=== PATIENT | male | born 1950 | race Caucasian/White ===

== ENCOUNTER 2016-05-18 18:34 | Inpatient (IN) | payer OTHER ==
--- NOTE | 2016-05-18 18:46 | EDPHY ---
H & P Time Seen by Provider: 05/18/16 18:42 HPI/ROS: CHIEF COMPLAINT: Multiple neurological complaints. HISTORY OF PRESENT ILLNESS: This patient is a 66 year old male who presents to the Emergency Department following an episode of acute neurological deficits beginning at 5:30p.m. today. He tells me that he was watching TV when he experienced brief flashes in his vision that he likens to migraine aura. He then experienced paresthesias to both hands that have since subsided. His reports that his speech became slurred with expressive aphasia; for example, he would say "shirt" instead of the name of the character on TV. His difficulty with word finding has persisted to the present. He has a history of migraine headaches with visual aura but tells me that he has not experienced a headache today. He denies any pain or additional complaints. Medical history includes diabetes and hypertension. REVIEW OF SYSTEMS: A complete 10 point review of systems is negative except as mentioned in history of present illness. Past Medical/Surgical History: Diabetes, hypertension, hypothyroid. Social History: and son at bedside. Smoking Status: Current every day smoker Physical Exam: GENERAL: Well-appearing, in no acute distress, alert. HEENT: Eyes normal to inspection, normal pharynx, no signs of dehydration. NECK: No thyromegaly, no lymphadenopathy, supple. RESPIRATORY: Clear to auscultation bilaterally, no rales, rhonchi or wheezing. CVS: Regular rate and rhythm, no rubs, murmurs, or gallops. ABDOMEN: Soft, nontender, nondistended, no organomegaly. BACK: Normal to inspection, no CVA tenderness. SKIN: Normal color, no rash, warm, dry. No pallor. EXTREMITIES: No pedal edema, no calf tenderness, no Homans sign or cords, no joint swelling. NEURO/PSYCH: Alert and oriented x3, normal mood and affect, normal motor sensory exam. No obvious cranial nerve deficit. Normal finger to nose. Normal heel to mishra bilaterally. Short-term memory 2/3. NIH scale: Best language: 1; picture correct, unable to name hammock. Constitutional: Initial Vital Signs Temperature (C) 36.0 C 05/18/16 18:36 Heart Rate 122 H 05/18/16 18:36 Respiratory Rate 16 05/18/16 18:36 Blood Pressure 219/110 H 05/18/16 18:36 O2 Sat (%) 97 05/18/16 18:36 O2 Delivery Mode Nasal Cannula O2 (L/minute) 3 Allergies/Adverse Reactions: No Known Allergies Allergy (Unverified 03/23/10 12:21) Home Medications: Medication Instructions Recorded Ascorbic Acid [Vitamin C 500 mg 500 mg PO DAILY 05/18/16 (*)] Cholecalciferol Vit D3 [Vitamin D3 1,000 units PO DAILY 05/18/16 (*)] Cyanocobalamin [Vitamin B12 (*)] 1,000 mcg PO DAILY 05/18/16 Herbals/Supplements -Info Only 1 ea PO DAILY 05/18/16 Ibuprofen/Diphenhydramine Cit 1 each PO HS PRN 05/18/16 [Advil Pm Caplet] Levothyroxine Sodium 88 mcg PO DAILY@06 05/18/16 [Levothyroxine Sodium] Lisinopril [Zestril 10 mg (*)] 10 mg PO DAILY 05/18/16 Metoprolol Succinate Xr [Toprol Xl 25 mg PO DAILY 05/18/16 25 mg (*)] Zaleplon [Zaleplon] 10 mg PO HS PRN 05/18/16 Zolpidem Tartrate [Zolpidem 10 mg PO HS PRN 05/18/16 Tartrate] glipiZIDE [Glipizide] 5 mg PO DAILY 05/18/16 Medical Decision Making - Diagnostics EKG Interpretation: EKG shows normal sinus tachycardia rate 116; nonspecific intraventricular conduction delay; borderline ST depression V4-V6. Imaging: Study: CT of the head Indication: Acute-onset neurological deficits, stroke alert Results: CT scan of the head was obtained. The results of the study are: non- acute. The study was read by the radiologist, Dr. Sven Urban. I viewed the images myself on the PACS system. Study: CTA of the head Indication: Acute-onset neurological deficits, normal non-contrast CT of the head Results: CT angiogram of the head was obtained. The results of the study are: Moderate stenosis of the right supraclinoid ICA. The study was read by the radiologist, Dr. Sven Urban. I viewed the images myself on the PACS system. Study: CTA of the neck Indication: Acute-onset neurological deficits, normal non-contrast CT of the head Results: CT angiogram of the neck was obtained. The results of the study are: Advanced vascular disease; 99% occlusion of right IC with surrounding calcification plaque. 75% stenosis of left IC. The study was read by Dr. Sven Urban. I viewed the images myself on the PACS system. ED Course/Re-evaluation: 1848: Stroke alert called. 1850: EKG obtained. Teleneurology contacted. iStat obtained: BGL 150. Chemistries are otherwise within normal range. 1854: Patient taken to Imaging for CT of the head without contrast. 1858: The patient returned from CT scan. I reevaluated him at bedside. There is no change to his condition. Awaiting consultation with neurologist at [facility]. IV established. 500ml IV NS administered. 1905: CT results reported to me by Dr. Sven Urban. 1909: Consultation with Dr. Camacho, neurologist, who does not feel that the patient is a candidate for TPA at this time. CTA of head and neck ordered. 324mg PO Aspirin administered. Labs obtained. CBC, chemistries, and Coag are unremarkable. I discussed lab and imaging results with the patient and his family and answered all of their questions. I discussed with them the plan for CTA of the head and neck and subsequent admission to the hospital. They are agreeable to this plan. 1921: Consultation with Dr. Clemente Guzman, hospitalist, who accepts admission. 2011: CTA results reported to me by Dr. Sven Urban. I shared these results with Dr. Clemente Guzman who will discuss them and treatment options with the patient and his family. Differential Diagnosis: My differential includes but is not limited to ischemic CVA, hemorrhagic CVA, dissection, aneurysm, carotid occlusion, vertebral occlusion, electrolyte abnormality, sugar abnormality, ACS, acute OH, bacteremia, sepsis - Data Points Laboratory Results: Laboratory Results 05/18/16 18:50 05/18/16 18:50 05/18/16 05/18/16 18:50 18:44 WBC 7.97 10^3/uL (3.80-9.50) RBC 5.07 10^6/uL (4.40-6.38) Hgb 16.1 g/dL (13.7-17.5) POC Hgb 16.0 gm/dL (14.5-17.3) Hct 44.6 % (40.0-51.0) POC Hct 47 % (42.8-50.6) MCV 88.0 fL (81.5-99.8) MCH 31.8 pg (27.9-34.1) MCHC 36.1 g/dL (32.4-36.7) RDW 12.9 % (11.5-15.2) Plt Count 212 10^3/uL (150-400) MPV 10.2 fL (8.7-11.7) Neut % (Auto) 52.9 % (39.3-74.2) Lymph % (Auto) 34.5 % (15.0-45.0) [place] % (Auto) 9.2 % (4.5-13.0) Eos % (Auto) 2.1 % (0.6-7.6) Baso % (Auto) 1.0 % (0.3-1.7) Nucleat RBC Rel Count 0.0 % (0.0-0.2) Absolute Neuts (auto) 4.22 10^3/uL (1.70-6.50) Absolute Lymphs (auto) 2.75 10^3/uL (1.00-3.00) Absolute Monos (auto) 0.73 10^3/uL (0.30-0.80) Absolute Eos (auto) 0.17 10^3/uL (0.03-0.40) Absolute Basos (auto) 0.08 10^3/uL (0.02-0.10) Absolute Nucleated RBC 0.00 10^3/uL (0-0.01) Immature Gran % 0.3 % (0.0-1.1) Immature Gran # 0.02 10^3/uL (0.00-0.10) PT 12.2 SEC (12.0-15.0) INR 0.91 (0.83-1.16) APTT 24.1 SEC (23.0-38.0) POC Sodium 139 mEq/L (134-144) Sodium 138 mEq/L (134-144) POC Potassium 3.4 mEq/L (3.3-5.0) Potassium 3.7 mEq/L (3.5-5.2) POC Chloride 101 mEq/L (96-108) Chloride 100 mEq/L (97-110) Carbon Dioxide 25 mEq/l (22-31) Anion Gap 13 mEq/L (8-16) POC BUN 10 mg/dL (7-23) BUN 10 mg/dL (7-23) Creatinine 0.9 mg/dL (0.7-1.3) POC Creatinine 0.9 mg/dL (0.8-1.5) Estimated GFR > 60 Glucose 142 H mg/dL (70-100) POC Glucose 150 H mg/dL (70-100) Calcium 9.4 mg/dL (8.5-10.4) Troponin I < 0.012 ng/mL (0-0.034) Ethyl Alcohol < 10 mg/dL (0-10) Medications Given: Discontinued Medications Aspirin (Aspirin) 324 mg PO EDNOW ONE Stop: 05/18/16 19:12 Last Admin: 05/18/16 19:15 Dose: 324 mg Sodium Chloride (Ns) 500 mls @ 0 mls/hr IV ONCE ONE PRN Reason: Wide Open Stop: 05/18/16 19:07 Last Admin: 05/18/16 19:07 Dose: 500 mls Lorazepam (Ativan Injection) 1 mg IVP EDNOW ONE Stop: 05/18/16 19:54 Last Admin: 05/18/16 20:59 Dose: 1 mg Point of Care Test Results: 05/18/16 18:44 POC Sodium 139 POC Potassium 3.4 POC Chloride 101 POC BUN 10 POC Creatinine 0.9 POC Glucose 150 H Departure - Departure Disposition: [facility] In[facility] Acute Clinical Impression: Expressive aphasia Transient cerebral ischemia Qualifiers: Transient cerebral ischemia type: unspecified Qualifier Code: (G45.9) Transient cerebral ischemic attack, unspecified Condition: Fair
--- NOTE | 2016-05-18 18:55 | CPEKG ---
Heart Rate: 116 RR Interval: 517 P-R Interval: 135 QRSD Interval: 116 QT Interval: 336 QTC Interval: 467 P [place]: 27 QRS [place]: -14 T Wave [place]: 44 EKG Severity - ABNORMAL ECG - EKG Impression: SINUS TACHYCARDIA EKG Impression: PROBABLE LEFT ATRIAL ABNORMALITY EKG Impression: NONSPECIFIC INTRAVENTRICULAR CONDUCTION DELAY EKG Impression: BORDERLINE ST DEPRESSION, LATERAL LEADS Electronically Signed By: Shana Mcmanus 18-May-2016 20:39:47
[2016-05-18 19:02] LABS: % IMMATURE GRANULYOCYTES 0.3 % (0.0-1.1); ABSOLUTE IMMATURE GRANULOCYTES 0.02 10^3/uL (0.00-0.10); ADD DIFF? NO; ADD MORPH? NO; ADD SCAN? NO; ATYPICAL LYMPHOCYTE FLAG 0 (0-99); FRAGMENT RBC FLAG 0 (0-99); HEMATOCRIT 44.6 % (40.0-51.0); HEMOGLOBIN 16.1 g/dL (13.7-17.5); LEFT SHIFT FLG 0 (0-99); LIPEMIA HEMOLYSIS FLAG 90 (0-99); MEAN CELL HEMOGLOBIN 31.8 pg (27.9-34.1); MEAN CELL HEMOGLOBIN CONCENTR. 36.1 g/dL (32.4-36.7); MEAN PLATELET VOLUME 10.2 fL (8.7-11.7); PLATELET CLUMPS FLAG 0 (0-99); PLATELET COUNT 212 10^3/uL (150-400); RED BLOOD CELL COUNT 5.07 10^6/uL (4.40-6.38); RED CELL DISTRIBUTION WIDTH 12.9 % (11.5-15.2)
[2016-05-18] MEDS ORDERED: NS 500 ML IV ONE (19:06)
[2016-05-18 19:11] LABS: INR 0.91 (0.83-1.16); PROTIME(PATIENT) 12.2 SEC (12.0-15.0)
[2016-05-18] MEDS ORDERED: ASPIRIN 81 MG CHEWABLE TAB PO ONE (19:11)
--- NOTE | 2016-05-18 19:11 | CT ---
CT Scan of the Head (Without Contrast) Clinical Indications: 66-year-old male stroke alert with word-finding difficulty, a migraine headach e history, and bilateral upper extremity numbness, with onset of symptoms at 5:30 p.m. and with some subsequent resolution. Technique: Axial CT images were acquired from the foramen magnum through the skull vertex, without i ntravenous contrast. Soft tissue, subdural, and bone windows were reviewed on the computer workstati on. Images were reformatted at 5.00 and 1.50 mm increments, and are reformatted in sagittal and brenna nal planes. DFOV is 25.0 cm. Dose reduction techniques were utilized. Comparison Study: None. Findings: There are no mass lesions identified, and there is no evidence of an acute or subacute intr acranial hemorrhage, or an acute infarct. The ventricles and subarachnoid spaces are normal in size for this age group. There is some minimal periventricular diminished attenuation adjacent to the fro ntal horns, likely reflecting some chronic microvascular ischemic gliosis. The bone windows reveal no sign of a fracture. There is some mild atherosclerotic calcification of the parasellar portions of the internal carotid arteries. The craniocervical junction, sella turcica, calcified pineal gland, an d the orbits are unremarkable. The visualized paranasal sinuses and mastoid air cells are free of flu id. If there is continuing clinical concern regarding the patient's symptoms, MR imaging could be co nsidered, if otherwise not contraindicated. Impression: No acute intracranial abnormality identified on this unenhanced CT scan. Results were discussed with Dr. Shana Mcmanus at 7:05 a.m. on May 18, 2016.
[2016-05-18 19:12] LABS: ANION GAP 13 mEq/L (8-16); APTT 24.1 SEC (23.0-38.0); CALCIUM 9.4 mg/dL (8.5-10.4); CARBON DIOXIDE 25 mEq/l (22-31); CHLORIDE 100 mEq/L (97-110); CREATININE 0.9 mg/dL (0.7-1.3); ETHANOL SERUM < 10 mg/dL (0-10); GLOMERULAR FILTRATION RATE > 60; GLUCOSE 142 mg/dL (70-100); POTASSIUM 3.7 mEq/L (3.5-5.2); SODIUM 138 mEq/L (134-144)
[2016-05-18] MEDS ORDERED: IOPAMIDOL (ISOVUE 370) 100 ML BTL IV ONE (19:16)
[2016-05-18 19:23] LABS: TROPONIN I < 0.012 ng/mL (0-0.034)
[2016-05-18] MEDS ORDERED: LORazepam 2 MG/ML INJ IVP ONE (19:53)
[2016-05-18] MEDS ORDERED: NALOXONE HCL 0.4 MG/ML INJ ONE ×2 (20:18)
[2016-05-18] MEDS ORDERED: ZOLPIDEM TARTRATE 5 MG TAB PO PRN (20:37)
[2016-05-18] MEDS ORDERED: ZALEPLON 10 MG PO PRN (20:37)
[2016-05-18] MEDS ORDERED: ONDANSETRON DISINTEGRATING 4 MG TAB PO PRN (20:37)
[2016-05-18] MEDS ORDERED: ACETAMINOPHEN 325 MG TAB PO PRN (20:37)
[2016-05-18] MEDS ORDERED: TEMAZEPAM 15 MG CAP PO PRN (20:37)
[2016-05-18] MEDS ORDERED: ONDANSETRON 4 MG/2 ML VIAL IVP PRN (20:37)
[2016-05-18] MEDS ORDERED: D50W 25 GM/50 ML SYR IVP PRN (20:45)
--- NOTE | 2016-05-18 20:46 | CT ---
CT Angiography of the Head and Neck Clinical History: 66-year-old male ("stroke alert") with aphasia and bilateral upper extremity numbn ess, which began at 5:30 p.m. this evening although has been slightly improving. Evaluate for eccent margaret stenosis, dissection, and/or intraluminal clot. Technique: A timing bolus was used. The patient received 85 mL of Isovue-370, without complication, and a multidetector helical CT scan was obtained from the AP window cephalad to the skull vertex dur ing peak systemic arterial phase, with images reformatted at 0.75 mm increments, and reviewed at a [facility] of window and level settings. Multiplanar reconstructions are reviewed on the workstation. icker slab images are also provided. The DFOV is 26.0 cm. A dose reduction protocol was used. Comparison Study: None. Findings: CT ANGIOGRAPHY OF THE NECK: There is a normal anatomic arrangement of the great vessels off of the a ortic arch. There is some atherosclerotic calcification along the aortic arch, and also involving a portion of the right and left innominate arteries. The visualized subclavian arteries are patent. T he right and left vertebral arteries are patent, and the right vertebral artery is the more dominant of the two vessels. The right and left common carotid arteries are patent; however, at the level of the right carotid bifurcation, there are critical stenoses of the origins of the internal and externa l carotid arteries. The external carotid artery is the more anterior of the two vessels. There is a 99% stenosis associated with the right internal carotid artery, and a 90% stenosis of the origin of the right external carotid artery (please reference axial series #5, images #[id number], and coronal ser ies #7, images #[id number]). There is circumferential calcific plaque at the level of the right carotid b ifurcation. Above this level, the internal and external carotid arteries are patent. On the left si de, the internal jugular vein is intensely contrast-opacified, and there is eccentric mural atheroscl erotic calcification associated with the left carotid bulb and bifurcation. The external carotid art [place] is patent; however, there is a hemodynamically significant ICA stenosis suspected with a 75% sten osis near the calcific plaque. The internal carotid artery is patent. CT source findings reveal reversal of the normal cervical lordosis. There are ventral and dorsal tra ction osteophytes from C3 through C7, with multilevel degenerative disk space narrowing, most pronoun miguelito at C4-C5 and C6-C7. Uncovertebral osteophyte formation and facet hypertrophy result in multileve l advanced neural foraminal stenoses, and dorsal disk osteophyte complexes result in significant cent ral canal stenoses at C3-C4, C4-C5, C5-C6, and C6-C7. These findings could be further evaluated with MR imaging, as clinically directed. The visualized superior mediastinal structures and prevertebral soft tissues are unremarkable. Mediastinal lipomatosis is seen, and the lung apices are essentiall y clear. Impression: 1. There is a 99% stenosis of the right internal carotid artery and a 90% stenosis of the right exte rnal carotid artery, with heavy calcific plaque at the right carotid bulb and bifurcation. 2. There is a 75% mean diameter stenosis of the left internal carotid artery, with eccentric calcifi c plaque. 3. Patent bilateral vertebral arteries, with the right vertebral artery the more dominant of the two vessels. 4. Significant multilevel central canal and neural foraminal stenoses at C3-C4, C4-C5, C5-C6, and C6 -C7. As clinically directed, MR imaging could be considered for additional assessment. These latter findings may be contributing to the patient's bilateral upper extremity weakness. CT ANGIOGRAPHY OF THE BRAIN: The distal cervical vertebral arteries, vertebrobasilar confluence, inf erior and superior cerebellar arteries, basilar artery, and the posterior cerebral arteries appear no rmal. The distal cervical, petrous, cavernous, and supraclinoid internal carotid arteries appear rel atively patent, with the exception of some atherosclerotic calcification which results in a moderate stenosis of the proximal right supraclinoid internal carotid artery (please reference series #5, imag e #[id number]). There is no intraluminal filling defect to suggest an acute clot. The A1 and A2 segments, anterior communicating artery, and the M1, M2, and M3 trifurcation vessels are patent. There is no f ocal aneurysm identified, nor is there a vascular malformation. Impression: 1. Atherosclerotic calcification involving the parasellar aspects of the internal carotid arteries, with a moderate stenosis of the proximal right supraclinoid internal carotid artery. 2. Patent posterior circulation. Results were called to Dr. Shana Mcmanus. A test result has been communicated to a licensed care provider and documented in Christina, 8:08:43 PM , 05/18/2016, [employer] Message ID [id number]. Measurement of carotid stenosis is based on velocity parameters that correlate the residual internal carotid diameter with [place] Symptomatic Carotid Endarterectomy Trial (NASCET) based stenosis levels.
[2016-05-18] MEDS ORDERED: DIPHENHYDRAMINE CIT PO PRN (21:24)
[2016-05-18] MEDS ORDERED: IBUPROFEN PO PRN (21:24)
[2016-05-18] MEDS ORDERED: IBUPROFEN 200 MG TAB PO PRN (21:48)
[2016-05-18] MEDS ORDERED: diphenhydrAMINE 25 MG CAP PO PRN (21:50)
--- NOTE | 2016-05-18 22:19 | GHP ---
[f rep st] HISTORY AND PHYSICAL DATE OF ADMISSION: 05/18/2016 HISTORY OF PRESENT ILLNESS: Mr. Sanchez is a 66-year-old gentleman with a history of hypertension, h yperlipidemia, and diabetes who presents with transient word-finding difficulties. He states that he was in his usual state of health today until he noticed some flashing lights and had the onset of a headache. He tried using some sound waves and humming. This is something he does frequently to abat e the symptoms, and they did not resolve so he sought care. In the emergency department his symptoms were largely improving, and he had basically missed naming a hammock and an NIH Stroke Scale of 1. At the time he had some bilateral hand numbness. He was not hyperventilating. His family said he di d not have facial droop, and they checked specifically. He did not have slurring of speech and more like difficulty completing words. He has never had previous TIA-like symptoms. He has not had palpitations. He is not a smoker. He d oes have diabetes, hypertension, and hyperlipidemia, and he takes a beta robbie and CARLITOS inhibitor, b ut does not take a statin. He has had previous flashing light symptoms with headaches in the past. There was no headache this t sanjeev. He has them infrequently. I suspect he likely has migraines. REVIEW OF SYSTEMS: Complete 10-point Review of Systems was conducted and negative except that as not ed in the HPI. PAST MEDICAL HISTORY: Hypertension, hyperlipidemia, cataracts, diabetes, hypothyroidism. ALLERGIES: No known drug allergies. HOME MEDICATIONS: Glipizide, Zaleplon,Toprol-XL 25, lisinopril 10, levothyroxine. 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 Nonsmoker, minimal alcohol. FAMILY HISTORY: Reviewed and unremarkable. PHYSICAL EXAM: VITAL SIGNS: On presentation temperature 36, blood pressure 219/110. It is now 150/ 80. Pulse 120, but it has come down. Breathing 16 times a minute and 97% on room air. GENERAL: He is anxious, but otherwise in no acute distress. HEENT: Sclerae anicteric. Oropharynx clear. Muco us membranes are moist. NECK: Supple without lymphadenopathy or JVD. LUNGS: Clear to auscultation bilaterally. HEART: S1, intermittently tachycardic. ABDOMEN: Soft, nontender, and nondistended. LOWER EXTREMITIES: Without edema. Calves are nontender. SKIN: Without rash. NEUROLOGIC: Shows fluent speech with no word-finding difficulties. No slurred speech. No dysarthria. Upper extremity and lower extremity strength is 5/5 bilaterally. Sensation is 5/5 bilaterally. Cerebellar testing in the upper extremities intact. LABORATORY STUDIES/IMAGING: EKG shows sinus tachycardia at 116 with normal axis and intervals. Head CT showed unremarkable. Head CTA showed 99% occlusion of the right internal carotid artery with dis margareth to that of 75% occlusion where it enters the skull. There is also a 75% occlusion of the left in ternal carotid artery. That final read is pending. Laboratories: White count 8, hematocrit 45, arely telets are 212,000, INR is 0.9. Sodium 138, potassium 3.7, chloride 100, bicarbonate 25, BUN 10, cre atinine 0.9, glucose 142, troponin less than 0.012. Ethanol level is negative. I have discussed the case with Dr. Shana Mcmanus. ASSESSMENT/PLANS: A 66-year-old gentleman with a transient ischemic attack versus migraine. 1. Transient ischemic attack versus migraine. I suspect this is more likely to be a migraine. His high-grade carotid stenosis is noted. Irrespective, he will be admitted for a further stroke workup including an echocardiogram, lipid panel, and A1c, etc. 2. High-grade carotid stenosis. The patient needs surgical management of this. Dr. Pepito lyuld be consulted in the morning of the [address] [place] [address] to. I have not consulted him at this point in ti me. We will give him a full dose aspirin. I do not see an indication for intravenous heparin at thi s point. 3. Hyperlipidemia. Will check a lipid panel. 4. Diabetes. Will check a hemoglobin A1c. Put him on sliding scale. Hold his glipizide. 5. Hypertension. He is markedly hypertensive here, but I think this is situational secondary to anx iety. We will follow. Would continue his home blood pressure medications and follow. 6. Prophylaxis. Low molecular weight heparin prophylaxis indicated. 7. Disposition: Inpatient status, high risk. /[id number]/MODL
[2016-05-19 04:51] LABS: % IMMATURE GRANULYOCYTES 0.1 % (0.0-1.1); ABSOLUTE IMMATURE GRANULOCYTES 0.01 10^3/uL (0.00-0.10); ADD DIFF? NO; ADD MORPH? NO; ADD SCAN? NO; ATYPICAL LYMPHOCYTE FLAG 0 (0-99); FRAGMENT RBC FLAG 0 (0-99); HEMATOCRIT 39.2 % (40.0-51.0); HEMOGLOBIN 14.1 g/dL (13.7-17.5); LEFT SHIFT FLG 0 (0-99); LIPEMIA HEMOLYSIS FLAG 90 (0-99); MEAN CELL HEMOGLOBIN 31.8 pg (27.9-34.1); MEAN CELL VOLUME 88.5 fL (81.5-99.8); MEAN PLATELET VOLUME 10.5 fL (8.7-11.7); PLATELET CLUMPS FLAG 0 (0-99); PLATELET COUNT 178 10^3/uL (150-400); RED BLOOD CELL COUNT 4.43 10^6/uL (4.40-6.38); RED CELL DISTRIBUTION WIDTH 12.6 % (11.5-15.2)
[2016-05-19 05:01] LABS: INR 0.95 (0.83-1.16); PROTIME(PATIENT) 12.6 SEC (12.0-15.0)
[2016-05-19 05:02] LABS: APTT 24.8 SEC (23.0-38.0)
[2016-05-19 05:04] LABS: CHOLESTEROL 264 mg/dL (140-220); CHOLESTEROL/HDL RATIO 7.54 RATIO (1.00-4.97); HIGH DENSITY LIPOPROTEIN 35 mg/dL (40-65); NON-HIGH DENSITY LIPOPROTEIN 229 mg/dL (90-129); TRIGLYCERIDE 451 mg/dL (40-150)
[2016-05-19] MEDS: LEVOTHYROXINE 88 MCG TAB PO SCH (07:07)
[2016-05-19] MEDS: INSULIN LISPRO 100 UNIT/ML SC SCH ×3 (07:47→18:16)
[2016-05-19] MEDS ORDERED: ASPIRIN 325 MG TAB PO SCH (09:00)
[2016-05-19] MEDS ORDERED: Herbals/Supplements -Info Only PO SCH (09:00)
[2016-05-19] MEDS ORDERED: ENOXAPARIN 40 MG/0.4 ML SYR SC SCH (09:00)
[2016-05-19] MEDS: CHOLECALCIFEROL VIT D3 1,000 UNITS TAB PO SCH (10:37)
[2016-05-19] MEDS: CYANO/VITAMIN B12 1000 MCG TAB PO SCH (10:38)
[2016-05-19] MEDS: ASCORBIC ACID 500 MG TAB PO SCH (10:38)
[2016-05-19] MEDS: LISINOPRIL 10 MG TAB PO SCH (10:39)
[2016-05-19] MEDS: METOPROLOL SUCCINATE XR 25 MG TAB PO SCH (10:40)
--- NOTE | 2016-05-19 12:53 | US ---
Bilateral Duplex Carotid Sonography Clinical Indications: 66-year-old male admitted with dysarthria and noted to have hemodynamically si gnificant stenoses on CT angiography. Evaluate peak systolic velocities. The patient has medically-co ntrolled hypertension and diabetes, and some memory loss. Technique: The cervical portions of the carotid and vertebral arteries were imaged and interrogated by color and pulsed Doppler. Spectral analysis was performed. Cine clips are stored on PACS. Comparison Study: CT angiography of the head and neck, from the evening of May 18, 2016. Findings: Right Carotid Artery: The common carotid artery, bifurcation, and origin of the internal and externa l carotid artery are well imaged. Doppler velocity estimates and color Doppler spectra are evaluated . There is pronounced acoustic shadowing associated with dense atherosclerotic calcification at the l evel of the carotid bulb and the proximal ICA and ECA. The right carotid bulb is near-completely occl uded with a peak systolic velocity of 248 cm/sec. The proximal right internal carotid artery near the stenosis has a peak systolic velocity of 201 cm/sec and a peak diastolic velocity of 37 cm/sec, and there is some spectral broadening on Doppler analysis. The ICA to CCA peak systolic velocity ratio is elevated at 2.7. There is a severe stenosis also associated with the external carotid artery with a peak systolic velocity of 379 cm/sec. Left Carotid Artery: The common carotid artery, bifurcation, and origin of the internal and external carotid artery are well imaged. Doppler velocity estimates and color Doppler spectra are evaluated, and there is eccentric calcific plaque associated with the left carotid bulb. The peak systolic [place] is seen along the more distal visualized portion of the internal carotid artery, measuring 157 c m/sec with a peak diastolic velocity of 32 cm/sec. The ICA to CCA peak systolic velocity ratio is 1.7 5. The peak systolic velocity in the left external carotid artery is 133 cm/sec. Vertebral Arteries: Antegrade flow is shown by pulsed Doppler of each vertebral artery. The peak sys tolic velocity in the right vertebral artery is 64 cm/sec, and on the left has a peak systolic veloci ty of 74 cm/sec. Impression: 1. Severe atherosclerotic calcific plaque with near-complete occlusion of the right carotid bulb, and severe proximal right internal carotid artery stenosis. 2. Atherosclerotic calcific plaque involving the left carotid bulb with a moderate stenosis of the le ft internal carotid artery. 3. Patent, antegrade vertebral arteries. Measurement of carotid stenosis is based on velocity parameters that correlate the residual internal carotid diameter with [place] Symptomatic Carotid Endarterectomy Trial (NASCET) based stenosis levels.
[2016-05-19] MEDS ORDERED: DIAZEPAM 10 MG TAB PO PRN (13:29)
--- NOTE | 2016-05-19 14:46 | HOSPPROG ---
Hospitalist Progress Note Assessment/Plan: 66-year-old male [facility] hospital secondary to word-finding difficulties. This is my 1st encounter with the patient, chart reviewed. Patient's care discussed with Dr. Pepe of Neurology # severe carotid stenosis Obtain MRI of the brain to assure no stroke activity Initiate IV heparin drip at protocol Await Dr. Barker is consultation on Friday05/21/2015 Anticipate need for surgical intervention # word-finding difficulty Resolved independently Potential TIA versus migraine Await Neurology consult # hypertriglyceridemia Per patient has a history of this for about approximately 6 years Refuses statins Reviewed with patient He well consider statins after surgical intervention # history of diabetes mellitus Hemoglobin A1c pending Continue coverage # hypertension Improved Continue patient's home prescribed antihypertensive # disposition Unclear will change to inpatient status Will likely require surgical intervention Initiate heparin drip after MRI has been read Reviewed course of action with patient as well as Subjective: Has returned to baseline. Has no complaints of headache or other discomfort at this time. Has no word-finding difficulties. Objective: Vital Signs Temp Pulse Resp BP Pulse Ox 36.6 C 68 15 119/73 95 05/19/16 07:18 05/19/16 13:45 05/19/16 12:35 05/19/16 13:45 05/19/16 12:35 Laboratory Results 05/19/16 04:21 05/18/16 05/19/16 05/20/16 05:59 05:59 05:59 Intake Total 1200 Output Total 790 850 Balance 410 -850 PT 12.6 SEC (12.0-15.0) 05/19/16 04:21 INR 0.95 (0.83-1.16) 05/19/16 04:21 - Physical Exam Constitutional: no apparent distress, appears nourished, not in pain Eyes: PERRL, anicteric sclera, EOMI Ears, Nose, Mouth, Throat: moist mucous membranes, hearing normal, ears appear normal Cardiovascular: regular rate and rhythym, No JVD, No edema Respiratory: no respiratory distress, no rales or rhonchi, reduced air movement Gastrointestinal: normoactive bowel sounds, No tenderness, No ascites Skin: warm, normal color, No erythema Musculoskeletal: full muscle strength, normal joint ROM, no joint effusions Neurologic: AAOx3 Psychiatric: interacting appropriately, not anxious, not encephalopathic ICD10 Worksheet Patient Problems: Problems Problem Status Diagnosed Expressive aphasia Acute TIA (transient ischemic attack) Acute
--- NOTE | 2016-05-19 15:08 | ECHO ---
[id number] + + [address] : : [place] [address] : : [phone] + + Adult Echocardiographic Report + -------+ :Name: DORYS JARAMILLOEvangelist Date: 05/19/2016 12:49 PM : : Hospital Admission Number: [id number] Locati on: 345: :: 1950 Gender: Male Height: 72 in : :Age: 66 yrs Race: WH Weight: 200 lb : :Reason For Study: TIA/pre op endarterectomy : : BSA: 2.1 meter s2 : + -------+ MMode/2D Measurements & Calculations IVSd: 0.95 cm LVIDd: 4.7 cm FS: 44.1 % Ao root diam: 3.1 cm LVPWd: 1.1 cm LVIDs: 2.6 cm EDV(Teich): 103.9 ml LA dimension: 3.8 cm ESV(Teich): 25.6 ml EF(Teich): 75.3 % Normal Measurement Values: + + :LVIDd (3.5-5.7cm) IVSd (0.6-1.1cm) LVPWd (0.6-1.1cm) Aortic Root (2.0-3.7cm)Left Atrium (1.5-4.0cm): :LV Vol(d) (76-115ml) LV Vol(s) (29-48ml) Ejec Fraction (50-65%)PV Suraj (0.6- 1.2m/s) TV Suraj (0.4-1.0m/s) : :MV E Suraj (0.8-1.0m/s)MV A Suraj (0.3-1.0m/s)LVOT Suraj (0.7-1.2m/s) Asc Ao Suraj ( 0.9-1.8m/s) : + + Doppler Measurements & Calculations MV E max suraj: 84.9 cm/sec Ao mean P.1 mmHg MV A max suraj: 101.7 cm/sec Ao V2 mean: 92.2 cm/sec MV E/A: 0.83 Ao V2 VTI: 27.3 cm Left Ventricle The left ventricle is normal in size. There is normal left ventricular wall thickness. Left ventricular systolic function is normal. Ejection Fraction = 65-70%. There is Doppler evidence for diastolic dysfunction. No regional wall motion abnormalities noted. Right Ventricle The right ventricle is normal in size and function. Atria The left atrial size is normal. Right atrial size is normal. Mitral Valve The mitral valve is normal in structure and function. There is no evidence of mitral valve prolapse. There is no mitral valve stenosis. There is mild mitral regurgitation. Tricuspid Valve Normal tricuspid valve. There is trace tricuspid regurgitation. Aortic Valve The aortic valve is trileaflet. The aortic valve opens well. There is no aortic stenosis. Mild aortic regurgitation. Pulmonic Valve The pulmonic valve is normal in structure and function. Trace pulmonic valvular regurgitation. Great Vessels The aortic root is normal size. Pericardium/Pleural There is a fat pad seen. There is no pericardial effusion. Conclusion A complete two-dimensional transthoracic echocardiogram was performed (2D, M-mode, Doppler and color flow Doppler). Left ventricular systolic function is normal. Ejection Fraction = 65-70%. Normal LV wall motion There is Doppler evidence for Grade I diastolic dysfunction. There is mild mitral regurgitation. There is trace tricuspid regurgitation. Mild aortic regurgitation. Trace pulmonic valvular regurgitation. There is a fat pad seen. No prior echo Final Reading Physician: Dr Rosa Mackay electronically signed on 05/19/2016 03:07 PM Ordering Physician: Clemente Guzman Performed By: Pia Guzman, FRANC
[2016-05-19] MEDS ORDERED: HEPARIN 10,000 UNIT/10 ML MDV IVP PRN (15:35)
[2016-05-19] MEDS ORDERED: HEPARIN/DEXTROSE 500 ML IV SCH (16:00)
--- NOTE | 2016-05-19 16:33 | MR ---
Unenhanced MRI of the Brain Clinical History: 66-year-old male admitted with word-finding difficulties last evening and noted to have hemodynamically significant carotid artery stenoses. Evaluate for any "DWI changes." Technique: Sagittal and axial T1, axial T2, FLAIR, SWI, DWI, and ADC imaging of the brain. Comparison Study: CT scan of the brain from the evening of May 18, 2016. Findings: The ventricles and basilar cisterns are normal in size for age with some mild cerebral elijah ical atrophy. There is periventricular hyperintense FLAIR signal, consistent with chronic microvascul ar ischemic glioma cyst. There is no restricted diffusion on the DWI sequences to suggest an acute or subacute infarction. The brainstem and cerebellum appear normal. There is no blooming artifact to joel ggest occult hemorrhagic products or amyloid angiopathy. There is no acute intra or extra-axial fluid collection. The endocervical junction, sella turcica, pineal gland, and the orbits are normal. The p aranasal sinuses notable only for some mild ethmoid mucosal thickening. The mastoids are patent. Ther e are vertebrobasilar, carotid artery, and dural venous sinus flow-voids. Impression: There is no MR evidence of an acute or subacute infarction.
--- NOTE | 2016-05-19 17:46 | GCON ---
[f rep st] CONSULTATION NEUROLOGY CONSULT REFERRING PHYSICIAN: Clemente Guzman MD CHIEF COMPLAINT: TIA. HISTORY OF PRESENT ILLNESS: The patient is a very pleasant 66-year-old gentleman with a lifelong history of migraines, consisting of scintillating scotomas, followed by mild headache, sometimes bilateral hand numbness. The patient also has a history of hypertension and dyslipidemia, along with diabetes. He does not treat his dyslipidemia. He has taken statins in the past , which he tolerated very well. It reduced his cholesterol, but he stopped because he wanted to try other natural treatments. Yesterday, he began having typical scintillating scotoma, flashing lights, with perhaps a little bit of a headache. He typically can abort his headaches with the technique he has developed of humming but that did not work, and the symptoms progressed with, again, typical paresthesias in both hands. He did develop a new symptom, which he usually does not get, namely, word finding difficulties. Because of these evolving symptoms, he came to the emergency department. Specifically, in terms of the word-finding difficulties, he was having word substitutions, calling characters on television a "shirt." The entire symptomatology lasted 1 hour and spontaneously resolved, and he was back to baseline. Overall, it was identical to his previous migraines with the exception of the word-finding difficulties, suggestive of expressive aphasia symptoms. He had a stroke alert in the emergency department, along with head CT, CTA of the head and neck. The CT showed no acute abnormalities. CTA showed a 99% critical stenosis of the right ICA and 90% stenosis of the right external carotid artery. There was 75% left ICA stenosis. CTA of the brain showed atherosclerotic calcification in the parasellar aspects of the ICAs with moderate stenosis of the proximal right supraclinoid internal carotid artery. He had patent posterior circulation. He had a Doppler ultrasound as well, confirming severe atherosclerotic plaque with near complete occlusion of the right carotid bulb and severe right ICA stenosis. The left ICA stenosis was also noted. Lastly, we performed MRI brain this morning. I reviewed the images myself. He has minimal microvascular changes. Diffusion-weighted imaging shows no acute stroke. REVIEW OF SYSTEMS: A 10-point review of systems was performed and only pertinent to the HPI. PAST MEDICAL HISTORY: Per the Admitting History and Physical. SOCIAL HISTORY: Per the Admitting History and Physical. FAMILY HISTORY: Per the Admitting History and Physical. HOME MEDICATIONS: Glipizide, Zaleplon, Toprol-XL, lisinopril, levothyroxine. PHYSICAL EXAMINATION: VITAL SIGNS: Blood pressure 119/73. He is afebrile. Temperature 36.6. O2 sats are 96%. Heart rate 75, regular. GENERAL: In no acute distress, very pleasant. HIGHER MENTAL FUNCTION: He is awake and alert. He names 5/5, follows commands 5/5, and repeat 5/5. No aphasia. CRANIAL NERVES : Normal 2-7, 11, and 12. No dysarthria. MOTOR: Normal strength, tone, and deep tendon reflexes throughout. No focal weakness. No pronator drift. SENSORY: Normal to light touch in all 4 extremities. Pronation is normal in upper and lower extremities. In summary, normal exam. IMPRESSION AND PLAN: 1. Word finding difficulties, resolved. 2. Paresthesias, resolved. 3. 99% right carotid stenosis 4. 75% left carotid stenosis 5. History of Migraines Overall, the patient's episode may have represented a transient ischemic attack versus a migraine variant. The history is more suggestive of a migraine episode. In any case, the carotid findings are critical and need to be intervened on as soon as possible. The MRI fortunately shows no diffusion-weighted abnormalities. We offered the patient transfer to a different facility, as he understands, we will not have Vascular Surgery here until Friday. The patient understands and accepts risks , benefits, alternatives, and requests to stay here until Friday. As such, we will start an IV heparin drip without bolus for the critical internal carotid stenosis as noted above in light of the possible transient ischemic attack. We will stop his aspirin for potential surgery in the near future. Dr. Barker has been consulted and will see him Friday. The patient should on a statin and, postoperatively, aspirin indefinitely. I have counseled him to be on aspirin 325 mg daily coated with meals. He understood and has agreed to these recommendations. He will ask Dr. Barker about when he can start aspirin after surgery. He will also talk to Dr. Barker about his other carotid artery and arranging possible intervention and the timing of that intervention as well. I have counseled the patient that we change neurology services today and that we will continue to follow him as needed. We have discussed the plan going forward. There are no further recommendations now. Plan discussed with his primary hospitalist as well. Lastly, his vascular risk factors should be addressed and tightly controlled going forward with his PCP. If any further questions about this very pleasant patient, please do not hesitate to contact the neurology service. /[id number]/MODL MTDD
[2016-05-19 18:03] LABS: % IMMATURE GRANULYOCYTES 0.1 % (0.0-1.1); ABSOLUTE IMMATURE GRANULOCYTES 0.01 10^3/uL (0.00-0.10); ADD DIFF? NO; ADD MORPH? NO; ADD SCAN? NO; ATYPICAL LYMPHOCYTE FLAG 0 (0-99); FRAGMENT RBC FLAG 0 (0-99); HEMATOCRIT 39.9 % (40.0-51.0); HEMOGLOBIN 14.5 g/dL (13.7-17.5); LEFT SHIFT FLG 0 (0-99); LIPEMIA HEMOLYSIS FLAG 90 (0-99); MEAN CELL HEMOGLOBIN 32.2 pg (27.9-34.1); MEAN CELL HEMOGLOBIN CONCENTR. 36.3 g/dL (32.4-36.7); MEAN CELL VOLUME 88.5 fL (81.5-99.8); MEAN PLATELET VOLUME 10.6 fL (8.7-11.7); PLATELET CLUMPS FLAG 0 (0-99); PLATELET COUNT 189 10^3/uL (150-400); RED BLOOD CELL COUNT 4.51 10^6/uL (4.40-6.38); RED CELL DISTRIBUTION WIDTH 12.6 % (11.5-15.2)
[2016-05-19 18:13] LABS: INR 1.02 (0.83-1.16); PROTIME(PATIENT) 13.3 SEC (12.0-15.0)
[2016-05-19 18:14] LABS: APTT 28.1 SEC (23.0-38.0)
[2016-05-19] MEDS: DIAZEPAM 5 MG TAB PO PRN (22:35)
[2016-05-20] MEDS: ZOLPIDEM TARTRATE 5 MG TAB PO PRN ×2 (00:17→21:36)
[2016-05-20 04:42] LABS: HEMOGLOBIN A1C 7.5 % (4.0-6.0)
[2016-05-20] MEDS: LEVOTHYROXINE 88 MCG TAB PO SCH (06:29)
[2016-05-20] MEDS: INSULIN LISPRO 100 UNIT/ML SC SCH ×3 (09:42→18:30)
[2016-05-20] MEDS: CYANO/VITAMIN B12 1000 MCG TAB PO SCH (09:43)
[2016-05-20] MEDS: CHOLECALCIFEROL VIT D3 1,000 UNITS TAB PO SCH (09:43)
[2016-05-20] MEDS: ASCORBIC ACID 500 MG TAB PO SCH (09:43)
[2016-05-20] MEDS: METOPROLOL SUCCINATE XR 25 MG TAB PO SCH (09:43)
[2016-05-20] MEDS: LISINOPRIL 10 MG TAB PO SCH (09:43)
--- NOTE | 2016-05-20 11:07 | HOSPPROG ---
Hospitalist Progress Note Assessment/Plan: 66-year-old male [facility] hospital secondary to word-finding difficulties. This is my 1st encounter with the patient, chart reviewed. Reviewed terminal system operator and patient has been in sinus rhythm. # severe carotid stenosis/ 99% on right carotid/ 75% on left carotid MRI of the brain shows nothing acute Await Dr. Barker-consultation on Friday05/21/2015 will make NPO after midnight just in case of surgery started on heparin gtt # word-finding difficulty and paraesthesia Resolved independently Potential TIA versus migraine # hypertriglyceridemia Per patient has a history of this for about approximately 6 years Refuses statins in the past/ now is willing to start after surgery # history of diabetes mellitus Hemoglobin A1c is elevated @ 7.5 (reviewed this with his and him) Continue coverage # hypertension stable Continue patient's home prescribed antihypertensive # disposition Unclear will change to inpatient status Will likely require surgical intervention #Plan NPO status after midnight in case of surgery. Subjective: Raymond is feeling well/ no complaints. Objective: Vital Signs Temp Pulse Resp BP Pulse Ox 36.4 C 58 L 12 135/75 H 94 05/20/16 07:35 05/20/16 07:35 05/20/16 07:35 05/20/16 07:35 05/20/16 07:35 Laboratory Results 05/19/16 17:53 05/19/16 05/20/16 05/21/16 05:59 05:59 05:59 Intake Total 1200 350 Output Total 790 1100 850 Balance 410 -750 -850 PT 13.3 SEC (12.0-15.0) 05/19/16 17:53 INR 1.02 (0.83-1.16) 05/19/16 17:53 - Physical Exam Constitutional: no apparent distress, appears nourished, not in pain Eyes: PERRL Ears, Nose, Mouth, Throat: hearing normal Cardiovascular: regular rate and rhythym, no murmur, rub, or gallop Respiratory: no respiratory distress, clear to auscultation Gastrointestinal: normoactive bowel sounds Skin: warm, normal color Musculoskeletal: full muscle strength, no muscle tenderness Neurologic: AAOx3 Psychiatric: interacting appropriately, not anxious ICD10 Worksheet Patient Problems: Problems Problem Status Diagnosed Expressive aphasia Acute TIA (transient ischemic attack) Acute
[2016-05-20] MEDS: HEPARIN/DEXTROSE 500 ML IV SCH (12:50)
[2016-05-20] MEDS ORDERED: HEPARIN/DEXTROSE 500 ML IV SCH (13:00)
[2016-05-20] MEDS: DIAZEPAM 5 MG TAB PO PRN (21:36)
[2016-05-21] MEDS: LEVOTHYROXINE 88 MCG TAB PO SCH (05:37)
[2016-05-21] MEDS: CHOLECALCIFEROL VIT D3 1,000 UNITS TAB PO SCH (09:05)
[2016-05-21] MEDS: CYANO/VITAMIN B12 1000 MCG TAB PO SCH (09:05)
[2016-05-21] MEDS: ASCORBIC ACID 500 MG TAB PO SCH (09:05)
[2016-05-21] MEDS: LISINOPRIL 10 MG TAB PO SCH (09:05)
[2016-05-21] MEDS: METOPROLOL SUCCINATE XR 25 MG TAB PO SCH (09:05)
[2016-05-21] MEDS: INSULIN LISPRO 100 UNIT/ML SC SCH ×3 (09:10→18:20)
[2016-05-21] MEDS: HEPARIN/DEXTROSE 500 ML IV SCH (09:48)
--- NOTE | 2016-05-21 11:36 | HOSPPROG ---
Hospitalist Progress Note Assessment/Plan: 66-year-old male [facility] hospital secondary to word-finding difficulties. # severe carotid stenosis/ 99% on right carotid/ 75% on left carotid MRI of the brain shows nothing acute spoke with DR Barker/ OR today/ on heparin gtt # word-finding difficulty and paraesthesia Resolved independently Potential TIA versus migraine # hypertriglyceridemia Per patient has a history of this for about approximately 6 years Refuses statins in the past/ now is willing to start after surgery # history of diabetes mellitus Hemoglobin A1c is elevated @ 7.5 (reviewed this with his and him) Continue coverage # hypertension stable Continue patient's home prescribed antihypertensive # disposition pending #Plan explained to the patient and his he will be in ICU for recovery. Appreciate Dr Barker/ will get repeat labs in a.m. Subjective: Raymond has no c/o pain. Very appreciative of care in the hospital by all the staff. Objective: Vital Signs Temp Pulse Resp BP Pulse Ox 36.7 C 67 16 156/81 H 93 05/21/16 11:20 05/21/16 11:20 05/21/16 11:20 05/21/16 11:20 05/21/16 11:20 Laboratory Results 05/21/16 05:38 05/20/16 05/21/16 05/22/16 05:59 05:59 05:59 Intake Total 350 630 300 Output Total 1100 850 Balance -750 -220 300 PT 13.3 SEC (12.0-15.0) 05/19/16 17:53 INR 1.02 (0.83-1.16) 05/19/16 17:53 - Physical Exam Constitutional: no apparent distress, appears nourished, not in pain Eyes: PERRL Ears, Nose, Mouth, Throat: hearing normal Cardiovascular: regular rate and rhythym Respiratory: no respiratory distress Gastrointestinal: normoactive bowel sounds Skin: warm, normal color Musculoskeletal: no muscle tenderness Neurologic: AAOx3 Psychiatric: interacting appropriately, not anxious, not encephalopathic, thought process linear ICD10 Worksheet Patient Problems: Problems Problem Status Diagnosed Expressive aphasia Acute TIA (transient ischemic attack) Acute
[2016-05-21] MEDS ORDERED: NS 1,000 ML IV SCH (11:45)
[2016-05-21] MEDS ORDERED: THROMBIN (RECOMBINANT) 20,000 UNIT SPRAY TP ONE (13:00)
[2016-05-21] MEDS ORDERED: SKIN ADHESIVE (DERMABOND) 1 EACH TP ONE (13:00)
[2016-05-21] MEDS ORDERED: ceFAZolin 2 GM/DEXTROSE 100 ML IV ONE (13:00)
[2016-05-21] MEDS ORDERED: PROTAMINE SULFATE 50 MG/5 ML VIAL IVP ONE (13:00)
[2016-05-21] MEDS ORDERED: BUPIVACAINE 0.5% 30 ML SDV ONE (13:01)
[2016-05-21] MEDS ORDERED: MIDAZOLAM 2 MG/2 ML VIAL ONE (13:13)
[2016-05-21] MEDS ORDERED: fentaNYL 100 MCG/2 ML INJ ONE ×2 (13:28→15:54)
[2016-05-21] MEDS ORDERED: REMIFENTANIL HCL 1 MG VIAL ONE (13:28)
[2016-05-21] MEDS ORDERED: PROPOFOL/EMULSION 500 MG/50 ML BOTTLE IV ONE (13:28)
[2016-05-21] MEDS ORDERED: DEXAMETHASONE 4 MG/ML VIAL ONE ×2 (13:30)
[2016-05-21] MEDS ORDERED: LIDOCAINE 2% 100 MG/5 ML SYR IVP ONE (13:30)
[2016-05-21] MEDS ORDERED: ONDANSETRON 4 MG/2 ML VIAL ONE (13:30)
[2016-05-21] MEDS ORDERED: epHEDrine SULFATE 10 MG/ML SYR ONE ×3 (13:40→13:55)
[2016-05-21] MEDS ORDERED: GLYCOPYRROLATE 0.2 MG/1 ML VIAL ONE ×2 (13:55)
--- NOTE | 2016-05-21 16:52 | POSTOPPROG ---
Post Op Note Date of Operation: 05/21/16 Surgeon: Pepito Barker Log Feeder: estrella Anesthesiologist: kevin Anesthesia: GET(General Endotracheal) Pre-op Diagnosis: critical right carotid stenosis, tia Post-op Diagnosis: same Indication: 99% stenosis Procedure: rt carotid endarterectomy with eeg monitor Findings: localized 99% stenosis Inf/Abcess present in the surg proc area at time of surgery?: No Depth: Organ Space EBL: Minimal Complications: 0 Specimen(s): plaque
[2016-05-21] MEDS: HYDROCODONE/APAP 5/325 TAB PO PRN (17:49)
--- NOTE | 2016-05-21 19:35 | SOAPPROG ---
SOAP Progress Note Assessment/Plan: Assessment: POSTOP OK/ NEURO INTACT Plan: HOME IN AM ? 05/21/16 19:34 Objective: Vital Signs Temp Pulse Resp BP Pulse Ox 36.6 C 63 16 95/55 L 96 05/21/16 16:55 05/21/16 17:54 05/21/16 17:54 05/21/16 17:54 05/21/16 17:54 Laboratory Results 05/21/16 05:38 05/20/16 05/21/16 05/22/16 05:59 05:59 05:59 Intake Total 613 368 4945 Output Total 1911 299 7704 Balance -750 -220 2145 PT 13.3 SEC (12.0-15.0) 05/19/16 17:53 INR 1.02 (0.83-1.16) 05/19/16 17:53 ICD10 Worksheet Patient Problems: Problems Problem Status Diagnosed Expressive aphasia Acute TIA (transient ischemic attack) Acute
--- NOTE | 2016-05-21 19:42 | SOAPPROG ---
RUPALI Progress Note Assessment/Plan: Assessment: POSTOP OK/ NEURO INTACT Plan: HOME IN AM ? 05/21/16 19:34 05/21/16 19:40 SEEN PREOP FOR CRITICAL RT CAROTID STENOSIS AND ? TIA/ RISKS AND OPTIONS FULLY DISCUSSED ALSO HAS 75% LEFT STENOSIS/ PLAN RT CEA WITH EEG MONITOR Objective: Vital Signs Temp Pulse Resp BP Pulse Ox 36.6 C 63 16 95/55 L 96 05/21/16 16:55 05/21/16 17:54 05/21/16 17:54 05/21/16 17:54 05/21/16 17:54 Laboratory Results 05/21/16 05:38 05/20/16 05/21/16 05/22/16 05:59 05:59 05:59 Intake Total 299 394 9028 Output Total 7746 379 4021 Balance -750 -220 2145 PT 13.3 SEC (12.0-15.0) 05/19/16 17:53 INR 1.02 (0.83-1.16) 05/19/16 17:53 ICD10 Worksheet Patient Problems: Problems Problem Status Diagnosed Expressive aphasia Acute TIA (transient ischemic attack) Acute
[2016-05-21] MEDS ORDERED: ENALAPRILAT DIHYDRATE 1.25 MG/ML VIAL IVP PRN (19:53)
[2016-05-22] MEDS: ZOLPIDEM TARTRATE 5 MG TAB PO PRN ×2 (00:22→22:05)
[2016-05-22 05:29] LABS: % IMMATURE GRANULYOCYTES 0.5 % (0.0-1.1); ABSOLUTE IMMATURE GRANULOCYTES 0.05 10^3/uL (0.00-0.10); ADD DIFF? NO; ADD MORPH? NO; ADD SCAN? NO; ATYPICAL LYMPHOCYTE FLAG 0 (0-99); FRAGMENT RBC FLAG 0 (0-99); HEMATOCRIT 37.4 % (40.0-51.0); LEFT SHIFT FLG 10 (0-99); LIPEMIA HEMOLYSIS FLAG 90 (0-99); MEAN CELL HEMOGLOBIN 31.6 pg (27.9-34.1); MEAN CELL HEMOGLOBIN CONCENTR. 34.8 g/dL (32.4-36.7); MEAN PLATELET VOLUME 10.4 fL (8.7-11.7); PLATELET CLUMPS FLAG 20 (0-99); PLATELET COUNT 158 10^3/uL (150-400); RED BLOOD CELL COUNT 4.11 10^6/uL (4.40-6.38)
[2016-05-22 05:44] LABS: ANION GAP 12 mEq/L (8-16); CALCIUM 8.9 mg/dL (8.5-10.4); CARBON DIOXIDE 22 mEq/l (22-31); CHLORIDE 104 mEq/L (97-110); CREATININE 1.7 mg/dL (0.7-1.3); GLOMERULAR FILTRATION RATE 40; GLUCOSE 202 mg/dL (70-100); POTASSIUM 5.3 mEq/L (3.5-5.2); SODIUM 138 mEq/L (134-144)
[2016-05-22] MEDS: LEVOTHYROXINE 88 MCG TAB PO SCH (08:22)
[2016-05-22] MEDS: CYANO/VITAMIN B12 1000 MCG TAB PO SCH (08:22)
[2016-05-22] MEDS: CHOLECALCIFEROL VIT D3 1,000 UNITS TAB PO SCH (08:22)
[2016-05-22] MEDS: INSULIN LISPRO 100 UNIT/ML SC SCH ×3 (08:22→17:39)
[2016-05-22] MEDS: ASPIRIN 81 MG CHEWABLE TAB PO SCH (08:22)
[2016-05-22] MEDS: ASCORBIC ACID 500 MG TAB PO SCH (08:23)
[2016-05-22] MEDS: ATORVASTATIN CALCIUM 10 MG TAB PO SCH (08:23)
[2016-05-22] MEDS: METOPROLOL SUCCINATE XR 25 MG TAB PO SCH (08:23)
[2016-05-22] MEDS ORDERED: NS 250 ML IV ONE (08:54)
--- NOTE | 2016-05-22 08:54 | HOSPPROG ---
Hospitalist Progress Note Assessment/Plan: 66-year-old male [facility] secondary to word-finding difficulties. # severe carotid stenosis/ 99% on right carotid/ 75% on left carotid POD #1 CEA /right #Hypotension fluid bolus and continue fluids until this improves #bradycardia hold beta robbie # word-finding difficulty and paraesthesia Resolved independently Potential TIA versus migraine # hypertriglyceridemia Per patient has a history of this for about approximately 6 years Refuses statins in the past/ now is willing to start after surgery # history of diabetes mellitus Hemoglobin A1c is elevated @ 7.5 (reviewed this with his and him) Continue coverage # hypertension now low bp # disposition #Plan: fluid bolus/hold bp meds, asa/ tx to floor after bp improves Subjective: Raymond is feeling well/ anxious to go home. Objective: Vital Signs Temp Pulse Resp BP Pulse Ox 36.5 C 52 L 18 85/43 L 94 05/22/16 08:00 05/22/16 08:23 05/22/16 08:00 05/22/16 08:23 05/22/16 08:00 Laboratory Results 05/22/16 05:15 05/22/16 05:15 05/21/16 05/22/16 05/23/16 05:59 05:59 05:59 Intake Total 630 3720 Output Total 850 1425 Balance -220 2295 PT 13.3 SEC (12.0-15.0) 05/19/16 17:53 INR 1.02 (0.83-1.16) 05/19/16 17:53 - Physical Exam Constitutional: no apparent distress, appears nourished, not in pain Eyes: PERRL Ears, Nose, Mouth, Throat: hearing normal Cardiovascular: regular rate and rhythym, bradycardia Respiratory: no respiratory distress Gastrointestinal: normoactive bowel sounds Skin: warm Musculoskeletal: no muscle tenderness Neurologic: AAOx3 Psychiatric: interacting appropriately, not anxious ICD10 Worksheet Patient Problems: Problems Problem Status Diagnosed Expressive aphasia Acute TIA (transient ischemic attack) Acute
--- NOTE | 2016-05-22 09:32 | SOAPPROG ---
SOAP Progress Note Assessment/Plan: Assessment: POSTOP OK/ NEURO INTACT Plan: HOME IN AM ? 05/21/16 19:34 05/21/16 19:40 SEEN PREOP FOR CRITICAL RT CAROTID STENOSIS AND ? TIA/ RISKS AND OPTIONS FULLY DISCUSSED ALSO HAS 75% LEFT STENOSIS/ PLAN RT CEA WITH EEG MONITOR 05/22/16 09:31 WOUND OK/ MILDLY BRADYCARDIC/ NEURO INTACT/ AFEBRILE/ TOLERATING PO/ HOME IN AM Objective: Vital Signs Temp Pulse Resp BP Pulse Ox 36.5 C 52 L 18 85/43 L 94 05/22/16 08:00 05/22/16 08:23 05/22/16 08:00 05/22/16 08:23 05/22/16 08:00 Laboratory Results 05/22/16 05:15 05/22/16 05:15 05/21/16 05/22/16 05/23/16 05:59 05:59 05:59 Intake Total 630 3720 Output Total 850 1425 Balance -220 2295 PT 13.3 SEC (12.0-15.0) 05/19/16 17:53 INR 1.02 (0.83-1.16) 05/19/16 17:53 ICD10 Worksheet Patient Problems: Problems Problem Status Diagnosed Expressive aphasia Acute TIA (transient ischemic attack) Acute
[2016-05-22] MEDS ORDERED: NS 1,000 ML IV SCH (13:45)
[2016-05-22] MEDS ORDERED: CEPACOL LOZENGE PO PRN (13:45)
[2016-05-22] MEDS: HYDROCODONE/APAP 5/325 TAB PO PRN (18:35)
[2016-05-22] MEDS: DIAZEPAM 5 MG TAB PO PRN (22:05)
[2016-05-23] MEDS: LEVOTHYROXINE 88 MCG TAB PO SCH (06:32)
[2016-05-23] MEDS: INSULIN LISPRO 100 UNIT/ML SC SCH ×3 (08:13→17:49)
--- NOTE | 2016-05-23 08:54 | HOSPPROG ---
Hospitalist Progress Note Assessment/Plan: 66-year-old male [facility] secondary to word-finding difficulties. # severe carotid stenosis/ 99% on right carotid/ 75% on left carotid POD #2 CEA /right will arrange to get the left side done later w Dr Barker #Hypotension resolved #bradycardia hold beta robbie # word-finding difficulty and paraesthesia Resolved independently Potential TIA versus migraine # hypertriglyceridemia Per patient has a history of this for about approximately 6 years Refuses statins in the past/ now is willing to start after surgery will dc him home with a prescription # history of diabetes mellitus Hemoglobin A1c is elevated @ 7.5 (reviewed this with his and him) Continue coverage will resume oral med, but will need close f/u with his PCP to get glucoses under better control # hypertension stable # renal insufficiency recheck labs now/ hold aceI # disposition #Plan: dc if ok w Dr Barker Subjective: Raymond is feeling well today/ no complaints. Objective: Vital Signs Temp Pulse Resp BP Pulse Ox 36.9 C 50 L 18 112/55 L 94 05/23/16 08:00 05/23/16 08:00 05/23/16 08:00 05/23/16 08:00 05/23/16 08:00 Laboratory Results 05/22/16 05:15 05/22/16 05:15 05/22/16 05/23/16 05/24/16 05:59 05:59 05:59 Intake Total 3720 650 Output Total 1425 1325 Balance 2295 -675 PT 13.3 SEC (12.0-15.0) 05/19/16 17:53 INR 1.02 (0.83-1.16) 05/19/16 17:53 - Physical Exam Constitutional: no apparent distress, appears nourished, not in pain Eyes: PERRL Ears, Nose, Mouth, Throat: hearing normal Cardiovascular: regular rate and rhythym, no murmur, rub, or gallop Respiratory: no respiratory distress Gastrointestinal: normoactive bowel sounds Skin: warm, other (dressing to right neck area) Musculoskeletal: no muscle tenderness Neurologic: AAOx3 Psychiatric: interacting appropriately, not anxious ICD10 Worksheet Patient Problems: Problems Problem Status Diagnosed Expressive aphasia Acute TIA (transient ischemic attack) Acute
[2016-05-23] MEDS ORDERED: BISACODYL 10 MG SUPP PR ONE (10:10)
[2016-05-23] MEDS: CHOLECALCIFEROL VIT D3 1,000 UNITS TAB PO SCH (10:28)
[2016-05-23] MEDS: METOPROLOL SUCCINATE XR 25 MG TAB PO SCH (10:28)
[2016-05-23] MEDS: glipiZIDE 5 MG TAB PO SCH (10:28)
[2016-05-23] MEDS: CYANO/VITAMIN B12 1000 MCG TAB PO SCH (10:29)
[2016-05-23] MEDS: ASCORBIC ACID 500 MG TAB PO SCH (10:29)
[2016-05-23] MEDS: ASPIRIN 81 MG CHEWABLE TAB PO SCH (10:29)
[2016-05-23] MEDS: ATORVASTATIN CALCIUM 10 MG TAB PO SCH (10:29)
[2016-05-23 11:54] LABS: ANION GAP 7 mEq/L (8-16); CALCIUM 9.2 mg/dL (8.5-10.4); CARBON DIOXIDE 32 mEq/l (22-31); CHLORIDE 102 mEq/L (97-110); GLOMERULAR FILTRATION RATE > 60; GLUCOSE 166 mg/dL (70-100); POTASSIUM 4.6 mEq/L (3.5-5.2); SODIUM 141 mEq/L (134-144)
[2016-05-23] MEDS ORDERED: BISACODYL 10 MG SUPP PR PRN ×2 (12:17→15:42)
--- NOTE | 2016-05-23 12:36 | SOAPPROG ---
SOAP Progress Note Assessment/Plan: Assessment: 66yo male s/p R CEA PE awake alert neck bandage dry, no significant edema/swelling EXT normal triceps/biceps strength to resistance Plan: ok to d/c from surgery perspective f/u one week in office reviewed postop wound care with pt and put instructions in d/c summary 05/23/16 12:33 Objective: Vital Signs Temp Pulse Resp BP Pulse Ox 36.9 C 50 L 18 112/55 L 94 05/23/16 08:00 05/23/16 08:00 05/23/16 08:00 05/23/16 08:00 05/23/16 08:00 Laboratory Results 05/22/16 05:15 05/23/16 11:24 05/22/16 05/23/16 05/24/16 05:59 05:59 05:59 Intake Total 3720 650 Output Total 1425 1325 Balance 2295 -675 PT 13.3 SEC (12.0-15.0) 05/19/16 17:53 INR 1.02 (0.83-1.16) 05/19/16 17:53 ICD10 Worksheet Patient Problems: Problems Problem Status Diagnosed Expressive aphasia Acute TIA (transient ischemic attack) Acute
[2016-05-23] MEDS ORDERED: LACTULOSE 20 GM/30 ML UDCUP PO PRN (15:42)
[2016-05-23] MEDS ORDERED: POLYETHYLENE GLYCOL 3350 17 GM PKT PO PRN (15:42)
[2016-05-23] MEDS: POLYETHYLENE GLYCOL 3350 17 GM PKT PO SCH (15:49)
[2016-05-23] MEDS: SENNOSIDES/DOCUSATE SODIUM TAB PO SCH (20:47)
[2016-05-23] MEDS: ZOLPIDEM TARTRATE 5 MG TAB PO PRN (21:49)
[2016-05-23] MEDS: HYDROCODONE/APAP 5/325 TAB PO PRN (21:56)
[2016-05-23] MEDS: DIAZEPAM 5 MG TAB PO PRN (23:03)
[2016-05-24 04:19] VITALS: O2SAT 94
[2016-05-24] MEDS: LEVOTHYROXINE 88 MCG TAB PO SCH (06:49)
[2016-05-24 07:42] VITALS: BP 168/88; PULSE 77; RESP 12; TEMP 98.4
[2016-05-24] MEDS: ASPIRIN 81 MG CHEWABLE TAB PO SCH (08:41)
[2016-05-24] MEDS: ATORVASTATIN CALCIUM 10 MG TAB PO SCH (08:41)
[2016-05-24] MEDS: glipiZIDE 5 MG TAB PO SCH (08:41)
[2016-05-24] MEDS: ASCORBIC ACID 500 MG TAB PO SCH (08:41)
[2016-05-24] MEDS: CYANO/VITAMIN B12 1000 MCG TAB PO SCH (08:41)
[2016-05-24] MEDS: CHOLECALCIFEROL VIT D3 1,000 UNITS TAB PO SCH (08:41)
[2016-05-24] MEDS: INSULIN LISPRO 100 UNIT/ML SC SCH (08:42)
[2016-05-24] MEDS: POLYETHYLENE GLYCOL 3350 17 GM PKT PO SCH (08:42)
[2016-05-24] MEDS: SENNOSIDES/DOCUSATE SODIUM TAB PO SCH (08:42)
--- NOTE | 2016-05-24 11:16 | GDS ---
[f rep st] DISCHARGE SUMMARY DISCHARGE DIAGNOSES: 1. Transient ischemic attack. 2. Severe bilateral carotid stenosis, worse on the right. 3. Status post carotid endarterectomy on the right. 4. Bradycardia. 5. Hypertriglyceridemia. 6. Type 2 diabetes. 7. Hypertension. HISTORY: This is a 66-year-old male who presented with word-finding difficulties. HOSPITAL COURSE: The patient came in as a stroke alert. He had a CTA which showed bilateral carotid stenosis with 99% on the right and 75% on the left. He then had a brain MRI which did not show any stroke. Neurology was consulted as well as Surgery. A decision was made to undergo a right carotid endarterectomy here in the hospital and then to defer for the left in a few weeks. This was done by Dr. Barker. His postoperative course was complicated with some bradycardia and hypotension. His beta -robbie has been discontinued. His blood pressure is getting better. He was instructed to restart his lisinopril, but hold beta-robbie until he sees his primary care doctor. He will be discharged h ome on a statin as well. DISPOSITION: To home. DISCHARGE MEDICATIONS: He is to resume his home medicines. In addition, he will be given aspirin 81 mg daily and Lipitor 10 mg daily. FOLLOWUP INSTRUCTIONS: 1. He is instructed to follow up with his primary care doctor. 2. He is also instructed to hold his metoprolol until he sees his primary care. TIME SPENT: Greater than 30 minutes was spent on this discharge. /[id number]/MODL
--- NOTE | 2016-05-28 07:11 | GOP ---
[f rep st] OPERATIVE REPORT DATE OF OPERATION: 05/21/2016 SURGEON: Pepito Barker MD ADVERTISING MATERIAL DISTRIBUTOR: Az Stuart MD. ANESTHESIOLOGIST: Dr. Nance. PREOPERATIVE DIAGNOSIS: Critical right carotid stenosis, transient ischemic attack. POSTOPERATIVE DIAGNOSIS: Critical right carotid stenosis, transient ischemic attack. PROCEDURE PERFORMED: Right carotid endarterectomy with EEG monitoring and patch angioplasty. FINDINGS: Patient was found to have a well-localized, but nearly complete obstruction at the origin of the internal carotid artery. Plaque was heavily calcified. He had adequate blood flow from the i nternal carotid stump. He also had no EEG changes with cross-clamping of the vessel. DESCRIPTION OF PROCEDURE: Patient was brought to the operating room where he received satisfactory g eneral endotracheal anesthesia by Dr. Nance. He was placed in supine position, prepped and draped in usual sterile fashion. The patient had been systemically heparinized prior to initiation of general anesthesia. An incision was made along the anterior border of the sternocleidomastoid muscle. Diss ection was carried down through the platysma and subcutaneous tissue. Hemostasis was carefully obtai alessandra. The superficial fascia was incised. The carotid arterial tree was then exposed and dissected f ree. This required ligation and division of the facial vein. Common carotid, internal carotid, and external carotid arteries were all dissected free and controlled with vessel loops, as was the inferi or thyroid artery. After adequate control was achieved, the patient was given additional heparin. T he vessels were cross-clamped. After adequate circulation time, an arteriotomy was done in the commo n carotid artery, extended up through the plaque in the internal carotid artery which was nearly comp lete with no discernible lumen. The internal carotid artery was patent; good backflow was present, a nd elected not to use a shunt. Expeditious endarterectomy was then done, removing the plaque quite q uickly. All vessels were then flushed. All debris was removed from the arterial wall and a good fea thered end was achieved distally. The arteriotomy was then closed with a Dacron patch sutured in arely ce with a running Hemashield 7 suture. Flow was first established through the external carotid arter y, then through the internal carotid artery. The suture line was reinforced where necessary in the w ound and hemostasis was fully obtained. Heparin was reversed with protamine. The wound was sprayed with some topical thrombin, and the cervical fascia was closed with a running 3-0 Vicryl suture. The subcu was closed with 3-0 Vicryl and the skin was closed with 4-0 Monocryl subcuticular stitch. Wou nd was infiltrated with 0.5% Marcaine. There were no complications. He tolerated the procedure well . Cross-clamp time was less than 25 minutes. There were no EEG changes. /[id number]/MODL
== END 2016-05-24 11:40 | disposition home or self-care (01) | DRG 39 ==
LOC: OBSVTOIN 20:37 → F3N 21:30 → F2N 05-21 16:35 → F2W 05-23 13:24
PROVIDERS: ADMIT Internal Medicine; ATTEND Internal Medicine
PROC: 03UK0JZ Supplement Right Internal Carotid Artery with Synthetic Substitute, Open Approach (ICD-10-PCS; principal; 2016-05-21 17:30)
PROC: 03CK0ZZ Extirpation of Matter from Right Internal Carotid Artery, Open Approach (ICD-10-PCS; principal; 2016-05-21 17:30)
DX: G45.9 Transient cerebral ischemic attack, unspecified (principal); I65.23 Occlusion and stenosis of bilateral carotid arteries; I10 Essential (primary) hypertension; E11.9 Type 2 diabetes mellitus without complications; E78.1 Pure hyperglyceridemia
CPT/HCPCS: 82947-QW; 85520-90; 92523-GN; 97161-GP; 97165-GO; C1768; G0480; G8978-GP-CI; G8979-GP-CI; G8980-GP-CI; G8987-GO-CI; G8988-GO-CI; G8989-GO-CI; G9168-GO-CI; G9169-GN-CI; G9170-GN-CI; J0690; J1100; J1644; J1650; J1815; J2001; J2250; J2310; J2405; J2704; J2720; J3010; Q9967

== ENCOUNTER → 2016-09-27 | Outpatient (CLI) | payer OTHER | LOC: BHFA 11:00 | PROVIDERS: ATTEND Internal Medicine Cardiovascular Disease | DX: I77.9 Disorder of arteries and arterioles, unspecified (principal); I10 Essential (primary) hypertension ==

== ENCOUNTER → 2016-11-21 | Outpatient (CLI) | payer OTHER ==
[~2016-11-21] MED LIST: GADOBUTROL 10 ML VIAL IVP ONE
== END ==
LOC: FIMAGING 13:26
PROVIDERS: ATTEND Family Medicine
DX: N63 Unspecified lump in breast (principal)
CPT/HCPCS: 0159T; A9585; C8908

== ENCOUNTER 2017-03-14 09:09 | Observation (INO) | payer OTHER ==
[2017-03-14] MEDS ORDERED: LR 1,000 ML IV ONE (09:35)
[2017-03-14] MEDS ORDERED: LIDOCAINE 1% 2 ML INJ ID PRN (09:35)
[2017-03-14] MEDS ORDERED: PROPOFOL 200 MG/20 ML VIAL ONE ×2 (10:24→11:48)
[2017-03-14] MEDS ORDERED: fentaNYL 100 MCG/2 ML INJ ONE (10:24)
[2017-03-14] MEDS ORDERED: ONDANSETRON 4 MG/2 ML VIAL ONE (10:31)
[2017-03-14] MEDS ORDERED: LIDOCAINE 2% 5 ML SDV ONE (10:31)
[2017-03-14] MEDS ORDERED: DEXAMETHASONE 4 MG/ML VIAL ONE (10:31)
[2017-03-14 10:33] LABS: ANION GAP 13 mEq/L (8-16); CALCIUM 9.3 mg/dL (8.5-10.4); CARBON DIOXIDE 26 mEq/l (22-31); CHLORIDE 102 mEq/L (97-110); CREATININE 0.9 mg/dL (0.7-1.3); GLOMERULAR FILTRATION RATE > 60; GLUCOSE 124 mg/dL (70-100); POTASSIUM 4.8 mEq/L (3.5-5.2); SODIUM 141 mEq/L (134-144)
--- NOTE | 2017-03-14 10:40 | PDANEPAE ---
ANE History of Present Illness presents for left mastectomy, sentinel node bx ANE Past Medical History - Cardiovascular History Hx Hypertension: Yes Hx Arrhythmias: No Hx Chest Pain: No Hx Coronary Artery / Peripheral Vascular Disease: No Hx CHF / Valvular Disease: No Hx Palpitations: No - Pulmonary History Hx COPD: No Hx Asthma/Reactive Airway Disease: No Hx Recent Upper Respiratory Infection: No Hx Oxygen in Use at Home: No Hx Sleep Apnea: No Sleep Apnea Screening Result - Last Documented: Positive - Neurologic History Hx Cerebrovascular Accident: No Hx Seizures: No Hx Dementia: No Neurologic History Comment: TIA 04/2016 - Endocrine History Hx Diabetes: Yes Obesity: no Endocrine History Comment: NIDDM - Renal History Hx Renal Disorders: No - Liver History Hx Hepatic Disorders: No - Neurological & Psychiatric Hx Hx Neurological and Psychiatric Disorders: No - Cancer History Hx Cancer: Yes Cancer History Comment: NEW DX BREAST - Congenital Disorder History Hx Congenital Disorders: No - GI History Hx Gastrointestinal Disorders: No - Other Health History Other Health History: INTERMITTENT BLEEDING FROM LT MASTECTOMY. GOUT RESOLVED WITH DIET - Chronic Pain History Chronic Pain: No - Surgical History Prior Surgeries: RT CAROTID ENDARECTOMY 04/2016. EMMANUEL CATARACT. SEPTOPLASTY ANE Review of Systems Review of systems is: negative Review of Systems: - Exercise capacity METS (RN): 4 METS ANE Patient History - Allergies Allergies/Adverse Reactions: No Known Allergies Allergy (Unverified 03/23/10 12:21) - Home Medications Home medications: home medication list seen and reviewed Home Medications: Ascorbic Acid [Vitamin C 500 mg (*)] 500 mg PO DAILY 05/18/16 [Last Taken ] Cholecalciferol Vit D3 [Vitamin D3 (*)] 1,000 units PO DAILY 05/18/16 [Last Taken 05/18/16] Cyanocobalamin [Vitamin B12 (*)] 1,000 mcg PO DAILY 05/18/16 [Last Taken ] Herbals/Supplements -Info Only 1 ea PO DAILY 05/18/16 [Last Taken 05/18/16] Levothyroxine Sodium 88 mcg PO DAILY@06 05/18/16 [Last Taken 05/18/16] Lisinopril [Zestril 10 mg (*)] 10 mg PO DAILY 05/18/16 [Last Taken 05/18/16] Metoprolol Succinate Xr [Toprol Xl 25 mg (*)] 25 mg PO DAILY 05/18/16 [Last Taken 05/18/16] Zolpidem Tartrate 10 mg PO HS PRN 05/18/16 [Last Taken Unknown] glipiZIDE [Glipizide] 5 mg PO HS 05/18/16 [Last Taken 05/18/16] Diazepam [Valium 10 MG (*)] 10 mg PO HS PRN 05/19/16 [Last Taken Unknown] Atorvastatin Calcium [Lipitor 10 mg (*)] 10 mg PO DAILY 02/26/17 [Last Taken Unknown] metFORMIN HCL [Glucophage 500 mg (*)] 500 mg PO DAILY 02/26/17 [Last Taken Unknown] - NPO status NPO Since - Liquids (Date): 03/14/17 NPO Since - Liquids (Time): 08:00 NPO Since - Solids (Date): 03/13/17 NPO Since - Solids (Time): 18:00 - Anes Hx Anes Hx: no prior problems - Smoking Hx Smoking Status: Never smoked ANE Labs/Vital Signs - Labs Result Diagrams: 03/14/17 10:03 - Vital Signs Blood Pressure: 146/82 Heart Rate: 79 Respiratory Rate: 18 O2 Sat (%): 98 Height: 179.07 cm Weight: 74.843 kg ANE Physical Exam - Airway Neck exam: FROM Mallampati Score: Class 1 Mouth exam: normal dental/mouth exam - Pulmonary Pulmonary: no respiratory distress - Cardiovascular Cardiovascular: regular rate and rhythym - ASA Status ASA Status: III ANE Anesthesia Plan Anesthesia Plan: GA w LMA
[2017-03-14] MEDS ORDERED: MIDAZOLAM 2 MG/2 ML VIAL IVP ONE (11:22)
[2017-03-14] MEDS ORDERED: BUPIVACAINE 0.5% 30 ML SDV ONE (11:34)
[2017-03-14] MEDS ORDERED: KETOROLAC 30 MG/1 ML SDV ONE (12:00)
[2017-03-14] MEDS ORDERED: LIDO/EPI 1% **for epidural** 30 ML SDV ONE (12:02)
[2017-03-14] MEDS ORDERED: ALBUTEROL 3 ML DEYVIAL IH PRN (12:13)
[2017-03-14] MEDS ORDERED: LABETALOL HCL 50 MG/10 ML SYR IVP PRN (12:13)
[2017-03-14] MEDS ORDERED: DEXAMETHASONE 4 MG/ML VIAL IVP PRN (12:13)
[2017-03-14] MEDS ORDERED: NALOXONE HCL 0.4 MG/ML INJ IVP PRN (12:13)
[2017-03-14] MEDS ORDERED: PROMETHAZINE HCL 25 MG/ML INJ IVP PRN (12:13)
[2017-03-14] MEDS ORDERED: OXYCODONE/APAP 5/325 TAB PO PRN (12:13)
[2017-03-14] MEDS ORDERED: ONDANSETRON 4 MG/2 ML VIAL IVP PRN (12:13)
[2017-03-14] MEDS ORDERED: HYDROmorphONE/DILAUDID 1 MG/ML INJ IVP PRN (12:13)
[2017-03-14] MEDS ORDERED: fentaNYL 100 MCG/2 ML INJ IVP PRN (12:13)
[2017-03-14] MEDS ORDERED: ACETAMINOPHEN 500 MG TAB PO PRN (12:13)
[2017-03-14] MEDS ORDERED: LR 500 ML IV PRN (12:13)
--- NOTE | 2017-03-14 13:22 | POSTANESTH ---
Post Anesthetic Evaluation Cardiovascular Status: Normal, Stable Respiratory Status: Normal, Stable Level of Consciousness/Mental Status: Can Participate in Eval Pain Control: Adequate, Prn Tx Ordered Nausea/Vomiting Control: Adequate, Prn Tx Ordered Complications Possibly Related to Anesthesia: None Noted
[2017-03-14] MEDS ORDERED: OXYCODONE/APAP 5/325 TAB ONE (13:56)
[2017-03-14 14:41] VITALS: TEMP 98.4
[2017-03-14 15:50] VITALS: BP 126/66; PULSE 58; RESP 18; O2SAT 95
--- NOTE | 2017-03-14 19:04 | GOP ---
[f rep st] OPERATIVE REPORT DATE OF OPERATION: 03/14/2017 SURGEON: Cody Wetzel MD ANESTHESIA: General. PREOPERATIVE DIAGNOSIS: Left breast carcinoma. POSTOPERATIVE DIAGNOSIS: Left breast carcinoma. PROCEDURE PERFORMED: Left modified radical mastectomy with axillary sentinel node biopsy. FINDINGS: See below. INDICATIONS: 66-year-old male with a left breast infiltrating ductal carcinoma. He has a clinically negative axilla. He is undergoing a mastectomy with sentinel node sampling at this time. Risks and benefits were explained of bleeding, infection, tumor recurrence, need for additional adjuvant therapy, skin flap necrosis, indications for additional surgical intervention, arm edema , nerve injury, as well as the indications for completion axillary dissection. All questions were answered. He desires to proceed. DESCRIPTION OF PROCEDURE: General anesthesia was induced upon returning from lymphoscintigraphy. The nipple-areolar complex was elliptically excised, being taken multiple centimeters radially from the central breast tumor. Using electrocautery, skin flaps were created to the level of the clavicles, sternum, inframammary fold, as well as latissimus dorsi muscle laterally. The breast was peeled from [id number], incorporating the pectoralis major fascia. The pectoralis major muscle directly behind the tumor was included with the specimen with additional muscle being taken as a final posterior margin. There was no gross tumor invasion noted. The specimen was tagged for orientation and sent for permanent specimen processing. The left axilla was opened proximal. There were 4 discretely identified sentinel nodes ranging from 700 to 2200 units on the gamma counter. Background activity was all negligible, less than 120 units. There was no clinically firm or suspicious lymph nodes identified. Satisfactory hemostasis was assured. The breast was closed in layers over a 10 flat Donald-Mancia drain placed through a separate lateral stab incision. Dermabond was applied. The patient was taken to Recovery awake uneventfully. /[id number]/MODL MTDD
--- NOTE | 2017-03-15 14:27 | ASDISCHSUM ---
Discharge Information Plan Status: Medically Cleared to Leave: Discharge Date:03/14/2017 06:27 PM CM D/C Disposition: ADT D/C Disposition:Home, Routine, Self-Care Projected Discharge Date:03/14/2017 06:27 PM Transportation at D/C: Discharge Delay Reason: Follow-Up Date:03/14/2017 06:27 PM Discharge Slot: Final Diagnosis: Placement Information Patient Contact Information Contact Name:NAIF Relationship: Address:[address] Work Phone: City:[facility] Phone: State/Zip Code:[place] [address] Email: Financial Information Financial Class: Primary Plan Desc:MEDICARE OUTPATIENT Primary Plan Number:[id number] Secondary Plan Desc:TEODORA MARTÍNEZ PPO Secondary Plan Number:[id number] Assessment Information Intervention Information
== END 2017-03-14 18:27 | disposition home or self-care (01) ==
LOC: F3E 09:09 → F1N 14:42
PROVIDERS: ADMIT Surgery; ATTEND Surgery
PROC: 07B60ZX Excision of Left Axillary Lymphatic, Open Approach, Diagnostic (ICD-10-PCS; principal; 2017-03-14 11:30)
PROC: 0HTU0ZZ Resection of Left Breast, Open Approach (ICD-10-PCS; principal; 2017-03-14 11:30)
DX: C50.122 Malignant neoplasm of central portion of left male breast (principal); I65.22 Occlusion and stenosis of left carotid artery; I10 Essential (primary) hypertension; E11.9 Type 2 diabetes mellitus without complications
CPT/HCPCS: 19307; A9520; J0171; J1100; J1885; J2250; J2405; J2704; J3010

== ENCOUNTER → 2017-03-14 | Outpatient (CLI) | payer OTHER ==
[~2017-03-14] MED LIST changes: -GADOBUTROL 10 ML VIAL IVP ONE; +LIDOCAINE 1% 2 ML INJ ONE
--- NOTE | 2017-03-14 11:27 | PDHPUP ---
History & Physical Update H&P update statement: This history and physical update is based on an assessment of the patient which was completed after admission or registration (within 24 hours), but prior to the surgery/procedure. H&P update: H&P reviewed & patient examined, no change in patient's condition since H&P completed
--- NOTE | 2017-03-14 11:29 | POSTOPPROG ---
Post Op Note Date of Operation: 03/17/17 Surgeon: Cody Wetzel Anesthesia: GET(General Endotracheal) Pre-op Diagnosis: Left breast cancer Post-op Diagnosis: Same Procedure: Left mastectomy with SLNB Inf/Abcess present in the surg proc area at time of surgery?: No EBL: Minimal Drains: Donald Mancai Specimen(s): breast and sentinel nodes
== END | disposition home or self-care (01) ==
LOC: FIMAGING 07:09
PROVIDERS: ATTEND Surgery
DX: C50.122 Malignant neoplasm of central portion of left male breast (principal)

== ENCOUNTER 2018-03-26 19:55 | Inpatient (IN) | payer OTHER ==
--- NOTE | 2018-03-26 20:07 | EDPHY ---
H & P Time Seen by Provider: 03/26/18 20:07 HPI/ROS: HPI CHIEF COMPLAINT: Expressive aphasia now resolved HISTORY OF PRESENT ILLNESS: 67-year-old male, presents emergency room by private vehicle at dinner today around 530 he was eating a wasabi salmon salad. He was trying to repeat this phrase at dinner to his and was becoming very confused with expressive aphasia and word salad. His reports that they phrase was garbled, and she was unable to understand it the patient reports he can think would he want disabled would not come out correctly. This lasted 5-10 minutes. He also complained of some blurry vision. This all resolved. Again this was 2 and 0.5 hr ago. He arrives to the emergency room without any complaint. He came by private vehicle out of concern for the symptoms. He denies any focal weakness, numbness or tingling. Denies trouble with speech at this time denies headache. It is noted the patient's blood pressure is 217/90 upon arrival. The patient does have a history of TIA with significant carotid disease. He had a right carotid enterectomy. He does state that he has significant disease still to his left carotid. He denies any chest pain or shortness of breath. Denies fever. Past Medical History: Significant medical history for TIA, carotid disease status post right carotid endarterectomy, hypertension, diabetes, high triglycerides, bradycardia Past Surgical History: Right carotid endarterectomy by Dr. Barker. Social History: Denies current use of drugs, alcohol, tobacco. Family History: Noncontributory ROS REVIEW OF SYSTEMS: 10 Systems were reviewed and negative with the exception of the elements mentioned in the history of present illness. Exam Constitutional vital signs reviewed at triage. Hypertensive. Alert or x4. Speaking clearly. triage nursing summary reviewed, vital signs reviewed, awake/ alert. Eyes normal conjunctivae and sclera, EOMI, PERRLA. HENT normal inspection, atraumatic, moist mucus membranes, no epistaxis, neck supple/ no meningismus, no raccoon eyes. Respiratory clear to auscultation bilaterally, normal breath sounds, no respiratory distress, no wheezing. Cardiovascular rate normal, regular rhythm, no murmur, no edema, distal pulses normal. Gastrointestinal soft, non-tender, no rebound, no guarding, normal bowel sounds, no distension, no pulsatile mass. Genitourinary no CVA tenderness. Musculoskeletal no midline vertebral tenderness, full range of motion, no calf swelling, no tenderness of extremities, no meningismus, good pulses, neurovascularly intact. Skin pink, warm, & dry, no rash, skin atraumatic. Neurologic no focal neurological deficit on exam. awake, alert and oriented x 3, AAOx3, moves all 4 extremities equally, motor intact, sensory intact, CN II- XII intact, normal cerebellar, normal vision, normal speech. Psychiatric normal mood/affect. Heme/Lymph/Immune no lymphadenopathy. Differential Diagnosis: Includes but is not limited to in a particular order TIA, CVA, intracranial bleed, carotid disease, embolic disease, ACS Medical Decision Making: Plan for this patient with brief episode of expressive a aphasia, what is described as word salad, will proceed with stroke workup. Patient need a CT scan head without contrast and CT angiogram head and neck. At this time he has a NIH stroke scale of 0. His symptoms have resolved. Additionally after initial workup in the ER patient need to be admitted for further observation, Neurology to see, stroke risk stratification. Re-evaluation: EKG interpretation by me on record in Seen system. Impression time of EKG 2023, sinus rhythm rate of 70, no signs of acute ischemic change. CT scan head without contrast negative for acute bleed called to me by Dr. Hebert. CT angiogram head and neck: Reviewed. This shows patent wide opening right carotid, left carotid shows 60-70% stenosis with carotid plaque. Stable. Similar previous CT angiogram. Called to me by Dr. Hebert. Patient be admitted to the hospitalist service over night for observation for TIA. Dr. Szymanski accepts Source: Patient - Medical/Surgical History Hx Asthma: No Hx Chronic Respiratory Disease: No Hx Diabetes: Yes Hx Cardiac Disease: Yes Hx Renal Disease: No Hx Cirrhosis: No Hx Alcoholism: No Hx HIV/AIDS: No Hx Splenectomy or Spleen Trauma: No Other PMH: DMII, htn, hyperlipidemia, gout - Social History Smoking Status: Never smoked Constitutional: Initial Vital Signs Temperature (C) 36.7 C 03/26/18 20:00 Heart Rate 82 03/26/18 20:00 Respiratory Rate 15 03/26/18 20:00 Blood Pressure 217/93 H 03/26/18 20:00 O2 Sat (%) 98 03/26/18 20:00 O2 Delivery Mode Room Air Allergies/Adverse Reactions: No Known Allergies Allergy (Unverified 03/26/18 20:00) Home Medications: Medication Instructions Recorded Ascorbic Acid [Vitamin C 500 mg 500 mg PO DAILY 05/18/16 (*)] Cholecalciferol Vit D3 [Vitamin D3 1,000 units PO DAILY 05/18/16 (*)] Cyanocobalamin [Vitamin B12 (*)] 1,000 mcg PO DAILY 05/18/16 Herbals/Supplements -Info Only 1 ea PO DAILY 05/18/16 Levothyroxine Sodium 88 mcg PO DAILY@06 05/18/16 Lisinopril [Zestril 10 mg (*)] 10 mg PO DAILY 05/18/16 Metoprolol Succinate Xr [Toprol Xl 25 mg PO DAILY 05/18/16 25 mg (*)] Zolpidem Tartrate 10 mg PO HS PRN 05/18/16 glipiZIDE [Glipizide] 5 mg PO HS 05/18/16 Diazepam [Valium 10 MG (*)] 10 mg PO HS PRN 05/19/16 Atorvastatin Calcium [Lipitor 10 10 mg PO DAILY 02/26/17 mg (*)] metFORMIN HCL [Glucophage 500 mg 500 mg PO DAILY 02/26/17 (*)] Aspirin [Aspirin 81mg (*)] 81 mg PO HS 03/26/18 Ibuprofen/Diphenhydramine Cit 1 each PO HS PRN 03/26/18 [Advil Pm Caplet] Medical Decision Making - Data Points Laboratory Results: Laboratory Results 03/26/18 20:20 03/26/18 20:45 Medications Given: Ascorbic Acid (Vitamin C) 500 mg PO DAILY [facility] Stop: 09/23/18 08:59 Last Admin: 03/27/18 11:35 Dose: 500 mg Atorvastatin Calcium (Lipitor) 10 mg PO DAILY [facility] Stop: 09/23/18 08:59 Last Admin: 03/27/18 11:35 Dose: 10 mg Cholecalciferol (Vitamin D) 1,000 units PO DAILY [facility] Stop: 09/23/18 08:59 Last Admin: 03/27/18 11:35 Dose: 1,000 units Levothyroxine Sodium (Synthroid) 88 mcg PO DAILY@06 [facility] Stop: 09/23/18 05:59 Last Admin: 03/27/18 05:46 Dose: 88 mcg Lisinopril (Zestril) 10 mg PO DAILY [facility] Stop: 09/23/18 08:59 Last Admin: 03/27/18 10:35 Dose: 10 mg Melatonin (Melatonin) 3 - 6 mg PO HS PRN PRN Reason: Sleep/Insomnia Stop: 09/22/18 23:54 Last Admin: 03/27/18 00:21 Dose: 6 mg Metoprolol Succinate (Toprol Xl) 25 mg PO DAILY [facility] Stop: 09/23/18 08:59 Last Admin: 03/27/18 10:33 Dose: 25 mg Vitamin B Complex (Vitamin B12) 1,000 mcg PO DAILY [facility] Stop: 09/23/18 08:59 Last Admin: 03/27/18 11:34 Dose: 1,000 mcg Discontinued Medications Sodium Chloride (Ns) 1,000 mls @ 500 mls/hr IV EDNOW ONE PRN Reason: Protocol Stop: 03/26/18 22:14 Last Admin: 03/26/18 20:33 Dose: 1,000 mls Point of Care Test Results: Chemistry 03/26/18 03/26/18 21:13 20:15 POC Sodium 143 mEq/L mEq/L (135-145) POC Potassium 4.1 mEq/L mEq/L (3.3-5.0) POC Chloride 107 mEq/L mEq/L (97-110) POC BUN 17 mg/dL mg/dL (7-23) POC Creatinine 0.9 mg/dL mg/dL (0.7-1.3) POC Glucose 107 mg/dL H mg/dL (70-100) POC Troponin I 0.00 ng/mL ng/mL (0.00-0.08) ISTAT H&H 03/26/18 21:13 POC Hgb 13.6 gm/dL L gm/dL (13.7-17.5) POC Hct 40 % % (40-51) Departure - Departure Disposition: [facility] Acute Clinical Impression: TIA (transient ischemic attack) Qualifiers: Transient cerebral ischemia type: unspecified Qualified Code(s): G45.9 - Transient cerebral ischemic attack, unspecified Condition: Fair
[2018-03-26] MEDS ORDERED: NS 1,000 ML IV ONE (20:15)
[2018-03-26 20:28] LABS: PLATELET COUNT 156 10^3/uL (150-400)
[2018-03-26] MEDS ORDERED: IOPAMIDOL (ISOVUE 370) 100 ML BTL IV ONE (21:15)
[2018-03-26 21:23] LABS: INR 0.93 (0.83-1.16); PROTIME(PATIENT) 12.7 SEC (12.0-15.0)
[2018-03-26] MEDS ORDERED: ONDANSETRON DISINTEGRATING 4 MG TAB PO PRN (22:29)
[2018-03-26] MEDS ORDERED: ONDANSETRON 4 MG/2 ML VIAL IVP PRN (22:29)
[2018-03-26] MEDS ORDERED: ACETAMINOPHEN 325 MG TAB PO PRN (22:29)
--- NOTE | 2018-03-26 23:01 | CPEKG ---
Test Reason : OPEN Blood Pressure : / mmHG Vent. Rate : 070 BPM Atrial Rate : 067 BPM P-R Int : 165 ms QRS Dur : 112 ms QT Int : 392 ms P-R-T Axes : 034 -05 040 degrees QTc Int : 423 ms Sinus rhythm Confirmed by Marquise Curtis ([id number]) on 03/26/2018 11:01:15 PM Referred By: Confirmed By:Marquise Curtis
[2018-03-26] MEDS ORDERED: D50W 25 GM/50 ML VIAL IVP PRN (23:50)
[2018-03-27] MEDS: MELATONIN 3 MG TAB PO PRN (00:21)
--- NOTE | 2018-03-27 00:26 | PDGENHP ---
History and Physical - Chief Complaint Aphasia - History of Present Illness 67 yo M w/ hx of TIA, DM, and HTN presents with complaints of aphasia. Around 5 PM today the patient was going out to dinner with . He noticed some mild visual disturbances. A few minutes later he and his noticed that his speech was slurred. This reminded him of a previous TIA so he came in to the ED for evaluation. By the time of his arrival in the ED his symptoms had resolved. At the time of my evaluation he is symptom free. He tells me he had a similar presentation in April of 2017. At that time he was noted to have severe stenosis of his R carotid artery. This was treated with a CEA by Dr. Barker. He has had no issues related to this since. He is compliant with aspirin, statin, and blood pressure medications. Case discussed with ED physician Dr. German; previous records reviewed and summarized above. History Information - Allergies/Home Medication List Allergies/Adverse Reactions: No Known Allergies Allergy (Unverified 03/26/18 20:00) Home Medications: Ascorbic Acid [Vitamin C 500 mg (*)] 500 mg PO DAILY 05/18/16 [Last Taken ] Cholecalciferol Vit D3 [Vitamin D3 (*)] 1,000 units PO DAILY 05/18/16 [Last Taken 03/26/18] Cyanocobalamin [Vitamin B12 (*)] 1,000 mcg PO DAILY 05/18/16 [Last Taken ] Herbals/Supplements -Info Only 1 ea PO DAILY 05/18/16 [Last Taken 03/26/18] Levothyroxine Sodium 88 mcg PO DAILY@06 05/18/16 [Last Taken 03/26/18] Lisinopril [Zestril 10 mg (*)] 10 mg PO DAILY 05/18/16 [Last Taken 03/26/18] Metoprolol Succinate Xr [Toprol Xl 25 mg (*)] 25 mg PO DAILY 05/18/16 [Last Taken 03/26/18] Zolpidem Tartrate 10 mg PO HS PRN 05/18/16 [Last Taken 03/25/18] glipiZIDE [Glipizide] 5 mg PO HS 05/18/16 [Last Taken 03/25/18] Diazepam [Valium 10 MG (*)] 10 mg PO HS PRN 05/19/16 [Last Taken 3 Days Ago ~10/03] Atorvastatin Calcium [Lipitor 10 mg (*)] 10 mg PO DAILY 02/26/17 [Last Taken 01/03] metFORMIN HCL [Glucophage 500 mg (*)] 500 mg PO DAILY 02/26/17 [Last Taken 03/26] Aspirin [Aspirin 81mg (*)] 81 mg PO HS 03/26/18 [Last Taken 03/26/18 18:30] Ibuprofen/Diphenhydramine Cit [Advil Pm Caplet] 1 each PO HS PRN 03/26/18 [Last Taken 2 Days Ago ~03/24/18] I have personally reviewed and updated: family history, medical history - Past Medical History diabetes type 2, hypertension, TIA - Surgical History Additional surgical history: R CEA - Family History Positive for: cancer, CAD - Social History Smoking Status: Never smoked Review of Systems Review of Systems: ROS: 10pt was reviewed & negative except for what was stated in HPI & below Physical Exam Physical Exam: Temp Pulse Resp BP Pulse Ox 36.6 C 59 L 14 170/87 H 95 03/26/18 23:08 03/26/18 23:08 03/26/18 23:08 03/26/18 23:18 03/26/18 23:08 Constitutional: no apparent distress, not in pain Eyes: PERRL, EOMI Ears, Nose, Mouth, Throat: moist mucous membranes, no oral mucosal ulcers Cardiovascular: regular rate and rhythym, systolic murmur Respiratory: no respiratory distress, clear to auscultation Gastrointestinal: normoactive bowel sounds, soft, non-tender abdomen Skin: warm, normal color Musculoskeletal: full muscle strength, no muscle tenderness Neurologic: AAOx3, sensation intact bilaterally, CN II-XII Intact, No weakness, No numbness, No facial droop Psychiatric: interacting appropriately, not anxious Lab Data & Imaging Review 03/26/18 20:20 03/26/18 20:45 WBC 7.57 10^3/uL (3.80-9.50) 03/26/18 20:20 RBC 4.88 10^6/uL (4.40-6.38) 03/26/18 20:20 Hgb 15.5 g/dL (13.7-17.5) 03/26/18 20:20 POC Hgb 13.6 gm/dL (13.7-17.5) L 03/26/18 21:13 Hct 43.7 % (40.0-51.0) 03/26/18 20:20 POC Hct 40 % (40-51) 03/26/18 21:13 MCV 89.5 fL (81.5-99.8) 03/26/18 20:20 MCH 31.8 pg (27.9-34.1) 03/26/18 20:20 MCHC 35.5 g/dL (32.4-36.7) 03/26/18 20:20 RDW 12.4 % (11.5-15.2) 03/26/18 20:20 Plt Count 156 10^3/uL (150-400) 03/26/18 20:20 MPV 10.5 fL (8.7-11.7) 03/26/18 20:20 Neut % (Auto) 59.7 % (39.3-74.2) 03/26/18 20:20 Lymph % (Auto) 27.7 % (15.0-45.0) 03/26/18 20:20 [place] % (Auto) 9.2 % (4.5-13.0) 03/26/18 20:20 Eos % (Auto) 1.8 % (0.6-7.6) 03/26/18 20:20 Baso % (Auto) 1.3 % (0.3-1.7) 03/26/18 20:20 Nucleat RBC Rel Count 0.0 % (0.0-0.2) 03/26/18 20:20 Absolute Neuts (auto) 4.51 10^3/uL (1.70-6.50) 03/26/18 20:20 Absolute Lymphs (auto) 2.10 10^3/uL (1.00-3.00) 03/26/18 20:20 Absolute Monos (auto) 0.70 10^3/uL (0.30-0.80) 03/26/18 20:20 Absolute Eos (auto) 0.14 10^3/uL (0.03-0.40) 03/26/18 20:20 Absolute Basos (auto) 0.10 10^3/uL (0.02-0.10) 03/26/18 20:20 Absolute Nucleated RBC 0.00 10^3/uL (0-0.01) 03/26/18 20:20 Immature Gran % 0.3 % (0.0-1.1) 03/26/18 20:20 Immature Gran # 0.02 10^3/uL (0.00-0.10) 03/26/18 20:20 PT 12.7 SEC (12.0-15.0) 03/26/18 20:45 INR 0.93 (0.83-1.16) 03/26/18 20:45 APTT 24.1 SEC (23.0-38.0) 03/26/18 20:45 Turbidity REJ 03/26/18 20:20 POC Sodium 143 mEq/L (135-145) 03/26/18 21:13 Sodium 140 mEq/L (135-145) 03/26/18 20:45 POC Potassium 4.1 mEq/L (3.3-5.0) 03/26/18 21:13 Potassium 4.4 mEq/L (3.3-5.0) 03/26/18 20:45 POC Chloride 107 mEq/L (97-110) 03/26/18 21:13 Chloride 105 mEq/L (97-110) 03/26/18 20:45 Carbon Dioxide 27 mEq/l (22-31) 03/26/18 20:45 Anion Gap 8 mEq/L (6-14) 03/26/18 20:45 POC BUN 17 mg/dL (7-23) 03/26/18 21:13 BUN 15 mg/dL (7-23) 03/26/18 20:45 Creatinine 1.0 mg/dL (0.7-1.3) 03/26/18 20:45 POC Creatinine 0.9 mg/dL (0.7-1.3) 03/26/18 21:13 Estimated GFR > 60 03/26/18 20:45 Glucose 107 mg/dL (70-100) H 03/26/18 20:45 POC Glucose 107 mg/dL (70-100) H 03/26/18 21:13 Calcium 9.3 mg/dL (8.5-10.4) 03/26/18 20:45 POC Troponin I 0.00 ng/mL (0.00-0.08) 03/26/18 20:15 Specimen Hemolysis REJ 03/26/18 20:20 Imaging Review: Imaging Impressions Chest X-Ray 03/26/18 20:15 Impression: Negative portable chest. Head CT 03/26/18 20:15 Impression: Normal noncontrast CT of the brain. Results called to Dr. German at 9:35 PM at the time of the interpretation. Head CTA 03/26/18 20:15 Impression: 1. Status post right carotid endarterectomy, widely patent. 2. Approximately 50-60% stenosis of the left internal carotid artery at the origin. 3. Atherosclerotic calcifications involve all 3 great vessels at the aortic arch. Results called to Dr. Salvador German at the time of the interpretation. Note: All stenoses are calculated using NASCET Criteria. Neck CTA 03/26/18 20:15 Impression: Stable CT angiography of the [place]. Atherosclerotic calcifications involve the supraclinoid ICAs bilaterally, right greater than left, with moderate narrowing. No vascular occlusion or aneurysm identified. Results called to Dr. German at the time of the examination.. 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 Plan: 1. TIA - Aphasia with duration of 30 minutes; symptoms resolved by time of arrival to the ED. He remains symptom free at this time. Initial evaluation (CTH , CTA Head/Neck) with no acute findings. ECG (personally reviewed/interpreted) in normal sinus rhythm. Of note, this episode was similar to one in 2017 when he was noted to have severe R carotid stenosis; now s/p R CEA per Dr. Barker. - Admit for observation - MR Brain in the morning - TTE w/ bubble, monitor on telemetry - Lipid panel, A1c with morning labs - PT/OT/LPN OR MEDICAL ASSISTANT evaluations - Neurology consult placed - Continue ASA, statin 2. DM - On oral medications as an outpatient only. - Continue metformin, glipizide - Monitor BG ACHS, D50 IV PRN for hypoglycemia 3. HTN - Continue home medications Diet - Regular pending swallow screen Code - Full Ppx - SCDs Dispo - Admit under observation status
[2018-03-27 05:10] LABS: PLATELET COUNT 186 10^3/uL (150-400)
[2018-03-27] MEDS: LEVOTHYROXINE 88 MCG TAB PO SCH (05:46)
[2018-03-27] MEDS ORDERED: CHOLECALCIFEROL VIT D3 1,000 UNITS TAB PO SCH (09:00)
[2018-03-27] MEDS ORDERED: ATORVASTATIN CALCIUM 10 MG TAB PO SCH (09:00)
[2018-03-27] MEDS: METOPROLOL SUCCINATE XR 25 MG TAB PO SCH (10:33)
[2018-03-27] MEDS: LISINOPRIL 10 MG TAB PO SCH (10:35)
[2018-03-27] MEDS: CYANO/VITAMIN B12 1000 MCG TAB PO SCH (11:34)
[2018-03-27] MEDS: ASCORBIC ACID 500 MG TAB PO SCH (11:35)
--- NOTE | 2018-03-27 14:13 | GCON ---
DATE OF CONSULTATION: 03/27/2018 REFERRING PHYSICIAN: Julius Guillen MD CHIEF COMPLAINT: TIA. HISTORY OF PRESENT ILLNESS: The patient is a very pleasant 67-year-old man whom I know from previous evaluation for TIA symptoms in April. Evaluation at that time showed critical right ICA stenosis near 99% and 75% on the left. Due to the severe nature of the right carotid stenosis, he had carotid endarterectomy and has been on maximal medical management and has made significant changes in his health and lifestyle. He has been on a plant-based diet, increased exercise, and has been doing well. However, yesterday at home, he started seeing a visual disturbance of sparkling wavy lines, then went to dinner and had 5-15 minutes of word salad and expressive aphasia symptoms without lateralized motor or sensory symptoms. He did have a mild headache with these symptoms, and they resolved spontaneously. He was admitted for further evaluation. Repeat angio of the head and neck showed atherosclerosis in the intracranial circulation without any acute occlusion or aneurysm. CTA of the neck showed widely patent right carotid, status post endarterectomy in approximately 50% to 60% of the left ICA at the origin, which numerically is improved from his last study at 75%. REVIEW OF SYSTEMS: Ten-point review of systems done and only pertinent to the HPI. For past medical history, social history, family history, home medications, and allergies, see Dr. Guillen's H and P. PHYSICAL EXAM: VITAL SIGNS: Blood pressure is 120s to 130s over 70s. He is afebrile at 36.7, heart rate 70s. GENERAL: In no acute distress. Very pleasant. NEUROLOGIC: Higher mental function: He is awake and alert. Names 5 /5, follows commands 5/5, and repeats 5 5. No aphasia. Cranial nerve exam: Normal 2 through 7 and 12. Motor exam: He has normal strength and tone throughout. Sensory exam is normal to light touch. Coordination is normal. IMPRESSION/PLAN: 1. Query left hemispheric transient ischemic attack (TIA) 2. Left internal carotid artery stenosis. I am concerned that the patient has had a recurrent transient ischemic attack referable to the left internal carotid artery plaquing. He was counseled at length. We discussed the possibility of complex migraine as well, but he has no personal or family history of migraines. Therefore, this seems less likely than transient ischemic attack. Going forward, I recommend maximal medical therapy in the interim with aspirin 81 mg daily, plus Plavix 75 mg daily, and increase statin dose. He understands and agrees. We discussed the potential risks, benefits and alternatives of these vascular medication changes. I recommend inpatient consultation with Dr. Jaydne Barker to assess the patient for a left carotid endarterectomy. He and Dr. Barker can discuss and decide specifics together. As an outpatient, I also would recommend he follow up with his inclusion specialist, Dr. Perez, for implantable nuclear monitoring technician to screen for paroxysmal atrial fibrillation as well. No further recommendations now. I rounded with the primary hospitalist on the patient, and we conferred on the above plan. We will continue to follow the patient as needed throughout his hospitalization. Please do not hesitate to call if there are any questions or changes in neurologic status. Forty-five total minutes of floor time today reviewing previous inpatient records, current inpatient records, including CTA of the head and neck, and actual MRI images. MRI has not been read yet. However, I reviewed the diffusion-weighted images myself and did not see any definite evidence of acute infarct. The floor time included counseling and coordination of care as well. /[id number]/MODL MTDD
--- NOTE | 2018-03-27 16:13 | ASMTCMCOM ---
CM Note CM Note Notes: Pt is a 67y/o male presented to the ED due to an episode of confusion with blurry vision, expressive aphasia and word salad. It lasted 10-15 minutes. When he arrived at the ED the episode had ended. It was determined that he had a TIA. PT/OT/POWER BARKER OPERATOR evals have been ordered. POWER BARKER OPERATOR found intact overall cognitive function with informal testing. Awaiting PT/OT. 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 CM will follow. D/C Plan: TBD Date Signed: 03/27/2018 03:53 PM Electronically Signed By:Tennille Sanchez
--- NOTE | 2018-03-27 16:29 | ECHO ---
[email or web address] [address] [address] Main: [phone] Fax: Transthoracic Echocardiogram Name: NIMISHA JARAMILLO MR#: [id number] Study Date: 03/27/2018 Study Time: 08:57 AM Date of : 1950 Age: 67 year(s) Height: 175.3 cm (69 in.) Weight: 79.38 kg (175 lb.) BSA: 1.95 m2 Gender: Male Examination: Echo Indication: TIA Image Quality: Adequate Contrast: Requested by: Julius Reeves BP: 133 mmHg/71 mmHg Heart Rate: Rhythm: Indication: TIA Procedure Staff Machinist Automotive: Sue Mena RDCS Reading Physician: Julio Herrera MD Requesting Provider: Conclusions: Normal size left ventricle. No LV hypertrophy. Normal global systolic LV function. EF is 66 %. No regional wall motion abnormality. Grade 1 diastolic dysfunction (abnormal relaxation). Normal size right ventricle. Normal RV function. The left atrium is normal in size. The right atrium is normal in size. Mild mitral valve leaflet calcification is present. Mild mitral valve regurgitation is present. The pulmonary artery pressure is normal. Right ventricular systolic pressure measures 27mmHg. Measurements: Chambers Valvular Assessment AV/MV Valvular Assessment TV/PV Normal Normal Normal Name Value Range Name Value Range Name Value Range Ao Iza (2D): 2.6 cm (1.4 cm-2.6 AV Vmax: 1.72 m/s (1 m/s-1.7 TR Vmax: 2.32 mm/s ( - ) cm) m/s) TR PGmax: 22 mmHg ( - ) IVSd (2D): 0.9 cm (0.6 cm-1.1 AV maxP mmHg ( - ) syst. PAP: 27 mmHg ( - ) cm) AV meanP mmHg ( - ) PV Vmax: 1.10 m/s (0.6 m/s-0.9 LVDd (2D): 5.0 cm (4.2 cm-5.9 LYNNETTE (VTI): 2.1 cm ( - ) m/s) cm) MV E Vmax: 0.76 m/s ( - ) PV PGmax: 5 mmHg ( - ) LVDs (2D): 2.6 cm (2.1 cm-4 MV A Vmax: 1.03 m/s ( - ) cm) MV E/A: 0.74 ( - ) LVPWd (2D): 1.0 cm (0.6 cm-1 cm) MV PHT: 0.075 s ( - ) LVOTd 2.0 cm 2.0 cm mm MVA (PHT): 2.9 s ( - ) Patient: NIMISHA JARAMILLO Study Date: 03/27/2018 Page 1 of 2 08:57 AM LVEF (BP): 66 % (>=55 %) RVDd(2D): 3.1 cm (1.9 cm-3.8 cmmm) Continued Measurements: Chambers Valvular Assessment AV/MV Valvular Assessment TV/PV Name Value Name Value Name Value LADs: 3.5 cm MV DecTime: 218 m/s CVP (est.): 5 mmHg LADs Lon.0 cm MV E' Septal: 0.07 m/s LA Area: 13.7 cm2 MV E/E' Septal: 10.20 LA Volume: 30 ml MV E/E' Lateral: 9.30 LA Volume Index: 15.4 ml/m2 RA Area: 15.0 cm2 Additional Vessels Name Value Ao Ascendin.8 cm Inferior Vena Cava: 1.8 cm Findings: Left Ventricle: Normal size left ventricle. No LV hypertrophy. Normal global systolic LV function. EF is 66 %. No regional wall motion abnormality. Grade 1 diastolic dysfunction (abnormal relaxation). Right Ventricle: Normal size right ventricle. Normal RV function. Left Atrium: The left atrium is normal in size. Right Atrium: The right atrium is normal in size. Mitral Valve: The mitral valve is normal in appearance and function. Mild mitral valve leaflet calcification is present. Mild mitral valve regurgitation is present. No mitral stenosis is present. Aortic Valve: The aortic valve is tri-leaflet. Mild aortic valve regurgitation is present. No aortic valve stenosis is present. Tricuspid Valve: The tricuspid valve is normal in appearance and function. Trivial tricuspid valve regurgitation. The pulmonary artery pressure is normal. Right ventricular systolic pressure measures 27mmHg. Pulmonic Valve: The pulmonic valve is normal in appearance and function. Trivial pulmonic valve regurgitation. Aorta: The aorta is normal. Normal size aortic root measuring 2.6 cm. Normal size ascending aorta measuring 2.8 cm. IVC: The IVC is normal sized. Pericardium: No pericardial effusion. There is pericardial fat. No pleural effusion. (No Signature Object) Patient: NIMISHA JARAMILLO Study Date: 03/27/2018 Page 2 of 2 08:57 AM [id number]
--- NOTE | 2018-03-27 16:49 | HOSPPROG ---
Hospitalist Progress Note Assessment/Plan: * Symptomatic left carotid stenosis -d/w Dr. Pepe and Dr. Barker -to CEA with Dr. Barker in am -per Dr. Mj mix to continue ASA tonight * TIA -neuro symptoms stable -outpatient cardiology consultation for event monitor - rule out afib * Hyperlipidemia -increased Lipitor for better LDL control * DM -metformin, glipizide Subjective: No further neuro symptoms Objective: Vital Signs Temp Pulse Resp BP Pulse Ox 36.3 C 63 18 133/71 H 96 03/27/18 16:00 03/27/18 16:00 03/27/18 16:00 03/27/18 16:00 03/27/18 16:00 Laboratory Results 03/27/18 04:27 03/27/18 04:27 03/26/18 03/27/18 03/28/18 05:59 05:59 05:59 Intake Total 1595 Balance 1595 PT 12.7 SEC (12.0-15.0) 03/26/18 20:45 INR 0.93 (0.83-1.16) 03/26/18 20:45 MRI brain - negative ECHO - normal EF - Physical Exam Constitutional: no apparent distress, appears nourished, not in pain Cardiovascular: regular rate and rhythym, no murmur, rub, or gallop Respiratory: no respiratory distress, no rales or rhonchi, clear to auscultation Gastrointestinal: normoactive bowel sounds, soft, non-tender abdomen, no palpable masses Skin: no rashes or abrasions, no fluctuance, no induration Neurologic: AAOx3, sensation intact bilaterally Psychiatric: interacting appropriately, not anxious, not encephalopathic, thought process linear ICD10 Worksheet Patient Problems: Problems Problem Status Onset Expressive aphasia Acute TIA (transient ischemic attack) Acute
[2018-03-27] MEDS ORDERED: DIAZEPAM 10 MG TAB PO PRN (17:07)
--- NOTE | 2018-03-27 19:04 | PDANEPAE ---
ANE History of Present Illness Left CEA ANE Past Medical History - Cardiovascular History Hx Hypertension: Yes Hx Arrhythmias: No Hx Chest Pain: No Hx Coronary Artery / Peripheral Vascular Disease: No Hx CHF / Valvular Disease: No Hx Palpitations: No - Pulmonary History Hx COPD: No Hx Asthma/Reactive Airway Disease: No Hx Recent Upper Respiratory Infection: No Hx Oxygen in Use at Home: No Hx Sleep Apnea: No - Neurologic History Hx Cerebrovascular Accident: No Hx Seizures: No Hx Dementia: No Neurologic History Comment: TIA 04/2016 - Endocrine History Hx Diabetes: Yes Hypothyroid: Yes Hyperthyroid: No Obesity: no Endocrine History Comment: NIDDM - Renal History Hx Renal Disorders: No - Liver History Hx Hepatic Disorders: No - Neurological & Psychiatric Hx Hx Neurological and Psychiatric Disorders: No - Cancer History Hx Cancer: Yes Cancer History Comment: NEW DX BREAST - Congenital Disorder History Hx Congenital Disorders: No - GI History Hx Gastrointestinal Disorders: No - Other Health History Other Health History: INTERMITTENT BLEEDING FROM LT MASTECTOMY. GOUT RESOLVED WITH DIET - Chronic Pain History Chronic Pain: No - Surgical History Prior Surgeries: RT CAROTID ENDARECTOMY 04/2016. EMMANUEL CATARACT. SEPTOPLASTY ANE Review of Systems Review of Systems: - Exercise capacity METS (RN): 4 METS - Systems Cardiac: Reports: no symptoms (Walks 1 mile/day) ANE Patient History - Allergies Allergies/Adverse Reactions: No Known Allergies Allergy (Unverified 03/26/18 20:00) - Home Medications Home medications: home medication list seen and reviewed Home Medications: Ascorbic Acid [Vitamin C 500 mg (*)] 500 mg PO DAILY 05/18/16 [Last Taken ] Cholecalciferol Vit D3 [Vitamin D3 (*)] 1,000 units PO DAILY 05/18/16 [Last Taken 03/26/18] Cyanocobalamin [Vitamin B12 (*)] 1,000 mcg PO DAILY 05/18/16 [Last Taken ] Herbals/Supplements -Info Only 1 ea PO DAILY 05/18/16 [Last Taken 03/26/18] Levothyroxine Sodium 88 mcg PO DAILY@06 05/18/16 [Last Taken 03/26/18] Lisinopril [Zestril 10 mg (*)] 10 mg PO DAILY 05/18/16 [Last Taken 03/26/18] Metoprolol Succinate Xr [Toprol Xl 25 mg (*)] 25 mg PO DAILY 05/18/16 [Last Taken 03/26/18] Zolpidem Tartrate 10 mg PO HS PRN 05/18/16 [Last Taken 03/25/18] glipiZIDE [Glipizide] 5 mg PO HS 05/18/16 [Last Taken 03/25/18] Diazepam [Valium 10 MG (*)] 10 mg PO HS PRN 05/19/16 [Last Taken 3 Days Ago ~10/03] Atorvastatin Calcium [Lipitor 10 mg (*)] 10 mg PO DAILY 02/26/17 [Last Taken 01/03] metFORMIN HCL [Glucophage 500 mg (*)] 500 mg PO DAILY 02/26/17 [Last Taken 03/26] Aspirin [Aspirin 81mg (*)] 81 mg PO HS 03/26/18 [Last Taken 03/26/18 18:30] Ibuprofen/Diphenhydramine Cit [Advil Pm Caplet] 1 each PO HS PRN 03/26/18 [Last Taken 2 Days Ago ~03/24/18] - Smoking Hx Smoking Status: Never smoked ANE Labs/Vital Signs - Labs Result Diagrams: 03/27/18 04:27 03/27/18 04:27 - Vital Signs Blood Pressure: 133/71 Heart Rate: 63 Respiratory Rate: 18 O2 Sat (%): 96 Height: 175.26 cm Weight: 80.739 kg ANE Physical Exam - Airway Neck exam: FROM Mallampati Score: Class 1 Mouth exam: normal dental/mouth exam - Pulmonary Pulmonary: no respiratory distress, no rales or rhonchi - Cardiovascular Cardiovascular: regular rate and rhythym, no murmur, rub, or gallop - ASA Status ASA Status: III (Hx C 3-4 stenosis. Mod to severe on MRI. No Hx upper ext. weakness. No pain or weakness with neck extension) ANE Anesthesia Plan Anesthesia Plan: general endotracheal anesthesia Lines/Monitors: arterial line Specialized Airway: video laryngoscope
[2018-03-27] MEDS: ASPIRIN 81 MG CHEWABLE TAB PO SCH (22:13)
[2018-03-27] MEDS: DIAZEPAM 5 MG TAB PO PRN (22:14)
[2018-03-27] MEDS: ZOLPIDEM TARTRATE 5 MG TAB PO PRN (22:14)
[2018-03-27] MEDS: glipiZIDE 5 MG TAB PO SCH (22:14)
[2018-03-28] MEDS: LEVOTHYROXINE 88 MCG TAB PO SCH (06:07)
[2018-03-28] MEDS ORDERED: THROMBIN (BOVINE) 20,000 UNIT SPRAY TP ONE (07:16)
[2018-03-28] MEDS ORDERED: BUPIVACAINE 0.5% 30 ML SDV ONE (07:16)
[2018-03-28] MEDS ORDERED: PROTAMINE SULFATE 50 MG/5 ML VIAL IVP ONE (07:16)
[2018-03-28] MEDS: LISINOPRIL 10 MG TAB PO SCH (07:49)
[2018-03-28] MEDS ORDERED: CEFAZOLIN 2 GM/DEXTROSE/100 ML BAG IV ONE (07:50)
[2018-03-28] MEDS: METOPROLOL SUCCINATE XR 25 MG TAB PO SCH (07:50)
[2018-03-28] MEDS ORDERED: MIDAZOLAM 2 MG/2 ML VIAL IVP ONE (07:55)
[2018-03-28] MEDS ORDERED: MIDAZOLAM 2 MG/2 ML VIAL ONE (08:00)
--- NOTE | 2018-03-28 08:09 | SOAPPROG ---
RUPAL[facility] Progress Note Assessment/Plan: Assessment: STABLE THIS A.M./RISKS AND OPTIONS AGAIN FULLY DISCUSSED/NEURO EXAM STABLE/MRI NEGATIVE FOR ACUTE INFARCT Plan: LEFT CAROTID ENDARTERECTOMY 03/28/18 08:08 Objective: Vital Signs Temp Pulse Resp BP Pulse Ox 36.4 C 73 14 166/85 H 94 03/28/18 07:42 03/28/18 07:50 03/28/18 07:42 03/28/18 07:50 03/28/18 07:42 03/27/18 03/28/18 03/29/18 05:59 05:59 05:59 Intake Total 850 Balance 850 PT 12.7 SEC (12.0-15.0) 03/26/18 20:45 INR 0.93 (0.83-1.16) 03/26/18 20:45 ICD10 Worksheet Patient Problems: Problems Problem Status Onset TIA (transient ischemic attack) Acute Expressive aphasia Acute
[2018-03-28] MEDS ORDERED: fentaNYL 100 MCG/2 ML INJ ONE (08:11)
[2018-03-28] MEDS ORDERED: REMIFENTANIL HCL 1 MG VIAL ONE (08:12)
[2018-03-28] MEDS ORDERED: PROPOFOL/EMULSION 500 MG/50 ML BOTTLE IV ONE (08:12)
[2018-03-28] MEDS ORDERED: DEXAMETHASONE 4 MG/ML VIAL ONE ×3 (08:14→08:28)
--- NOTE | 2018-03-28 08:14 | PDGENHP ---
History & Physical Chief Complaint: TIA History of Present Illness: 67-YEAR-OLD MALE WITH RECURRENT TIA WELL KNOWN TO ME FROM PREVIOUS EPISODES. HE IS STATUS POST A RIGHT CAROTID ENDARTERECTOMY 2 YEARS AGO AND NOW APPEARS TO HAVE A LEFT CAROTID HIGH-GRADE STENOSIS AND ASSOCIATED TIA. HEAD CT SCAN IS NEGATIVE, MRI IS PENDING. RISKS AND OPTIONS BEEN FULLY DISCUSSED. WE HAVE DISCUSSED THE OPTION OF CAROTID ENDARTERECTOMY. HIS RECENT SYMPTOMS INVOLVE PRIMARILY DYSPHASIA AND WORD-FINDING ABILITY WHICH HAVE TOTALLY RESOLVED Pertinent Past, Social, Family History: PMH: RIGHT CEA, LEFT MASTECTOMY, HYPERTENSION, TYPE 2 DIABETES. NO KNOWN ALLERGIES. FAMILY HISTORY NONCONTRIBUTORY. SOCIAL HISTORY NONSMOKER. REVIEW OF SYSTEMS -10 POINT REVIEW EXCEPT RELATED TO THE HPI. MEDS: LIPITOR, LISINOPRIL, GLUCOPHAGE, ASA AND OTHER MEDICINES OF LISTED IN HIS CHART Relevant Physical Exam: GENERAL: HEALTHY 67-YEAR-OLD MALE NO ACUTE DISTRESS, AFEBRILE. HEENT LEFT CAROTID BRUIT, RIGHT CAROTID ENDARTERECTOMY SCAR, PERRLA, NONICTERIC. NECK SUPPLE WITH FULL RANGE OF MOTION AND NO THYROMEGALY. CHEST CLEAR. COR REGULAR RHYTHM WITHOUT MURMURS. ABDOMEN SOFT. EXTREMITIES FULL RANGE OF MOTION FULL PULSES. NEURO EXAM SYMMETRIC MOTOR AND SENSORY FUNCTION, CRANIAL NERVES INTACT. PSYCH ALERT, ORIENTED, COOPERATIVE Cardiorespiratory Assessment: IMPRESSION: CRITICAL LEFT CAROTID STENOSIS WITH TIA. PLAN LEFT CAROTID ENDARTERECTOMY WITH EEG MONITORING/RISKS AND OPTIONS FULLY DISCUSSED AND HE WISHES TO PROCEED
[2018-03-28] MEDS ORDERED: ONDANSETRON 4 MG/2 ML VIAL ONE (08:15)
[2018-03-28] MEDS ORDERED: ePHEDrine SULFATE 25 MG/5 ML SYR ONE (08:25)
[2018-03-28] MEDS ORDERED: fentaNYL 100 MCG/2 ML INJ IVP PRN (09:22)
[2018-03-28] MEDS ORDERED: DEXAMETHASONE 4 MG/ML VIAL IVP PRN (09:22)
[2018-03-28] MEDS ORDERED: OXYCODONE/APAP 5/325 TAB PO PRN ×2 (09:22→10:33)
[2018-03-28] MEDS ORDERED: MEPERIDINE 25 MG/0.5 ML AMP IVP PRN (09:22)
[2018-03-28] MEDS ORDERED: PROMETHAZINE HCL 25 MG/ML INJ IVP PRN (09:22)
[2018-03-28] MEDS ORDERED: LR 500 ML IV PRN (09:22)
[2018-03-28] MEDS ORDERED: NALOXONE HCL 0.4 MG/ML INJ IVP PRN (09:22)
[2018-03-28] MEDS ORDERED: ACETAMINOPHEN 500 MG TAB PO PRN (09:22)
[2018-03-28] MEDS ORDERED: HYDROCODONE/APAP 5/325 TAB PO PRN (09:22)
[2018-03-28] MEDS ORDERED: LABETALOL HCL 5 MG/ML 20 ML MDV IVP PRN (09:22)
[2018-03-28] MEDS ORDERED: METOCLOPRAMIDE 10 MG/2 ML VIAL IVP PRN (09:22)
[2018-03-28] MEDS ORDERED: ALBUTEROL 3 ML DEYVIAL IH PRN (09:22)
[2018-03-28] MEDS ORDERED: PHENYLEPHRINE HCL 100 MCG/ML SYR IVP PRN (09:22)
--- NOTE | 2018-03-28 10:01 | PDMN ---
Medical Necessity Medical necessity: [facility] S300 Carotid Endarterectomy, 1 day post op: 67 yo initially presented w/ TIA/aphasia, admitted to OBS. Pt w/ hx TIA and R CEA 2 yrs ago. Now pt w/ L carotid high grade stenosis and associated TIA per surgical consult. Urgent carotid endarterectomy performed, pt meets IP criteria for extended stay because of acute TIA immediately prior to surgery. Change to IP status 03/27 @1644 per MD order.
--- NOTE | 2018-03-28 10:24 | POSTOPPROG ---
Post Op Note Date of Operation: 03/28/18 Surgeon: Pepito Barker [employer] Sergeant: LANEY Anesthesiologist: ASHLEY Anesthesia: GET(General Endotracheal) Pre-op Diagnosis: TIA, LEFT CAROTID STENOSIS Post-op Diagnosis: SAME Indication: TIA Procedure: LEFT CEA WITH EEG Findings: CALCIFIED TIGHT PLAQUE WITH NO EEG CHANGES Inf/Abcess present in the surg proc area at time of surgery?: No Depth: Organ Space EBL: Minimal Complications: 0 Specimen(s): PLAQUE
[2018-03-28] MEDS ORDERED: HYDROmorphONE/DILAUDID 1 MG/ML INJ IVP PRN (10:33)
[2018-03-28] MEDS ORDERED: ONDANSETRON 4 MG/2 ML VIAL IVP PRN (10:33)
[2018-03-28] MEDS: CYANO/VITAMIN B12 1000 MCG TAB PO SCH (11:00)
[2018-03-28] MEDS: ASCORBIC ACID 500 MG TAB PO SCH (11:00)
[2018-03-28] MEDS: D5W 1/2 NS W/ 20 KCl/L 1,000 ML IV SCH (11:07)
--- NOTE | 2018-03-28 11:11 | POSTANESTH ---
Post Anesthetic Evaluation Cardiovascular Status: Normal, Stable, Similar to Pre-Op Cond Respiratory Status: Normal, Stable, Tx Decrease in SpO2 (mild post op decrease in O2) Level of Consciousness/Mental Status: Can Participate in Eval, Mildly Sleepy, Arousable Pain Control: Adequate, Prn Tx Ordered Nausea/Vomiting Control: Adequate, Prn Tx Ordered Complications Possibly Related to Anesthesia: None Noted (moving all extremities )
--- NOTE | 2018-03-28 12:11 | NEUROPROG ---
Assessment: 1. Left carotid artery stenosis, status post left CEA, POD 0 2. Pre left hemisphere TIA, resolved The patient had left carotid endarterectomy this morning and did well. I examined him at late this morning and he has no neurologic deficits and is doing well. Going forward, I recommend he restart anti-platelet therapy when Dr. Barker clears him to do this. I also recommend outpatient follow-up with Dr. Perez for outpatient 30 day event monitor. He is agreeable No further recommendations. He will discharge from the hospital per general surgery, hospital Medicine and therapies. We will continue to follow up p.r.n. Please do not hesitate to call if there are any questions or changes in neurologic status with this very pleasant patient. Subjective: Postop from left CEA Doing well Objective: Vital Signs Temp Pulse Resp BP Pulse Ox 36.7 C 78 12 113/49 L 99 03/28/18 10:30 03/28/18 12:00 03/28/18 12:00 03/28/18 12:00 03/28/18 12:00 03/27/18 03/28/18 03/29/18 05:59 05:59 05:59 Intake Total 850 Balance 850 PT 12.7 SEC (12.0-15.0) 03/26/18 20:45 INR 0.93 (0.83-1.16) 03/26/18 20:45 Awake and alert Names 5/5; follows commands 5/5; repeats 5/5 Face is symmetric No focal weakness 35 min total floor time reviewing interim records, reviewing medical/surgical notes, direct counseling and coordination of care. Allergies/Adverse Reactions: No Known Allergies Allergy (Unverified 03/26/18 20:00)
[2018-03-28] MEDS: ATORVASTATIN CALCIUM 10 MG TAB PO SCH (13:01)
--- NOTE | 2018-03-28 16:15 | HOSPPROG ---
Hospitalist Progress Note Assessment/Plan: * Symptomatic left carotid stenosis s/p CEA -monitor in ICU overnight per Dr. Barker * TIA -neuro symptoms stable -outpatient cardiology consultation for event monitor - rule out afib -continue ASA * Hyperlipidemia -increased Lipitor for better LDL control * DM -metformin, glipizide Subjective: feels great post surgery Objective: Vital Signs Temp Pulse Resp BP Pulse Ox 36.4 C 73 16 104/47 L 98 03/28/18 14:00 03/28/18 15:00 03/28/18 15:00 03/28/18 15:00 03/28/18 15:00 03/27/18 03/28/18 03/29/18 05:59 05:59 05:59 Intake Total 850 Output Total 350 Balance 850 -350 PT 12.7 SEC (12.0-15.0) 03/26/18 20:45 INR 0.93 (0.83-1.16) 03/26/18 20:45 - Physical Exam Constitutional: no apparent distress, appears nourished, not in pain Cardiovascular: regular rate and rhythym, no murmur, rub, or gallop Respiratory: no respiratory distress, no rales or rhonchi, clear to auscultation Gastrointestinal: normoactive bowel sounds, soft, non-tender abdomen, no palpable masses Skin: no rashes or abrasions, no fluctuance, no induration Neurologic: AAOx3, sensation intact bilaterally Psychiatric: interacting appropriately, not anxious, not encephalopathic, thought process linear ICD10 Worksheet Patient Problems: Problems Problem Status Onset Expressive aphasia Acute TIA (transient ischemic attack) Acute
[2018-03-28] MEDS: glipiZIDE 5 MG TAB PO SCH (21:29)
[2018-03-28] MEDS: ASPIRIN 81 MG CHEWABLE TAB PO SCH (21:47)
[2018-03-28] MEDS: ZOLPIDEM TARTRATE 5 MG TAB PO PRN (21:47)
[2018-03-28] MEDS: DIAZEPAM 5 MG TAB PO PRN (23:05)
[2018-03-28] MEDS ORDERED: ALBUMIN 5% 500 ML IV ONE (23:30)
[2018-03-29] MEDS: D5W 1/2 NS W/ 20 KCl/L 1,000 ML IV SCH (05:29)
[2018-03-29] MEDS: LEVOTHYROXINE 88 MCG TAB PO SCH (05:32)
[2018-03-29 05:48] LABS: PLATELET COUNT 164 10^3/uL (150-400)
[2018-03-29] MEDS: metFORMIN HCL 500 MG TAB PO SCH (09:29)
[2018-03-29] MEDS: ATORVASTATIN CALCIUM 10 MG TAB PO SCH (09:29)
[2018-03-29] MEDS: LISINOPRIL 10 MG TAB PO SCH (09:30)
[2018-03-29] MEDS: METOPROLOL SUCCINATE XR 25 MG TAB PO SCH (09:30)
[2018-03-29] MEDS: ASCORBIC ACID 500 MG TAB PO SCH (09:31)
[2018-03-29] MEDS: CYANO/VITAMIN B12 1000 MCG TAB PO SCH (09:32)
--- NOTE | 2018-03-29 10:40 | GOP ---
DATE OF OPERATION: 03/28/2018 SURGEON: Pepito Barker MD CENTER MACHINE SET UP OPERATOR: Dr. Machado ANESTHESIOLOGIST: Dr. Nance PREOPERATIVE DIAGNOSIS: Transient ischemic attack and left carotid stenosis. POSTOPERATIVE DIAGNOSIS: Transient ischemic attack and left carotid stenosis. PROCEDURE PERFORMED: Left carotid endarterectomy with EEG monitoring. FINDINGS: Patient was found have a tight calcified carotid stenosis. He had no EEG changes. He had adequate backflow from the internal carotid stump. DESCRIPTION OF PROCEDURE: The patient was taken to the operating room, where he received a satisfact ory general endotracheal anesthesia by Dr. Nance. He was been systemically heparinized prior to janice ction of general anesthesia. Placed in supine position with his neck extended and prepped and draped in usual sterile fashion. An incision was made along the anterior border of the sternocleidomastoid muscle, dissection extended down through the platysma and subcutaneous tissue, and then through the cervical fascia. The common facial vein was dissected free, multiply ligated and divided, exposing the carotid arterial tree, wh ich was dissected free, and the common carotid, internal carotid, and external carotid arteries were all isolated with vessel loops. After adequate exposure was achieved, additional heparin was given, and after adequate circulation time, the vessels were occluded. Arteriotomy was made in the common c arotid artery and extended up through the calcified plaque into the internal carotid artery. Adequat e backflow was present. There were no EEG changes. An expeditious endarterectomy was then done guanaco ving the calcified plaque from the origin. Good feathered end was achieved. All debris was removed from the arterial wall. The vessels were multiply flushed and irrigated. A Dacron Hemashield patch was then placed on the artery and sutured in place with a running Hemashield 7 suture. Flow was firs t established through the external carotid artery and then through the internal carotid. Again, ther e were no EEG changes. Suture line was reinforced in [address] and otherwise was hemostatic. The wound was irrigated. Heparin was reversed with protamine. The wound was sprayed with some topic al thrombin. Hemostasis was assured. Cervical fascia was then closed with a running 3-0 Vicryl sutu re. Platysma was closed with a running 3-0 Vicryl suture, and the skin with a 4-0 Monocryl subcuticu lar stitch. The posterior flap was infiltrated with 0.5% Marcaine. He tolerated the procedure well. He awoke neurologically intact, moving all extremities. 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 Blood loss less than 100 cc. There were no complications. /[id number]/MODL
--- NOTE | 2018-03-29 11:20 | SOAPPROG ---
SOAP Progress Note Assessment/Plan: Assessment: Postoperative day 1. Status post left carotid endarterectomy. Overall doing very well. Dressing removed. Incision clean dry and intact. Can discharge home when medically ready. Follow-up with Dr. Barker in 1-2 weeks May shower Resume home diet May walk S: No headaches. Feeling well. o: sitting up in bed, at bedside CN intact CTAB, no increased work of breathing Regular rate Incision cdi Plan: 03/29/18 11:18 Objective: Vital Signs Temp Pulse Resp BP Pulse Ox 37.0 C 52 L 16 121/49 H 98 03/28/18 19:00 03/29/18 09:30 03/29/18 07:00 03/29/18 09:30 03/29/18 07:00 Laboratory Results 03/29/18 05:15 03/29/18 05:15 03/28/18 03/29/18 03/30/18 05:59 05:59 05:59 Intake Total 850 2685 Output Total 2250 Balance 850 435 PT 12.7 SEC (12.0-15.0) 03/26/18 20:45 INR 0.93 (0.83-1.16) 03/26/18 20:45 ICD10 Worksheet Patient Problems: Problems Problem Status Onset TIA (transient ischemic attack) Acute Expressive aphasia Acute
[2018-03-29] MEDS ORDERED: LACTULOSE 20 GM/30 ML UDCUP PO PRN (14:02)
[2018-03-29] MEDS ORDERED: MAGNESIUM HYDROXIDE 30 ML UDCUP PO PRN (14:02)
[2018-03-29] MEDS ORDERED: POLYETHYLENE GLYCOL 3350 17 GM PKT PO PRN (14:02)
[2018-03-29] MEDS ORDERED: BISACODYL 10 MG SUPP PR PRN (14:02)
--- NOTE | 2018-03-29 14:32 | GCON ---
CRITICAL CARE CONSULT DATE OF CONSULTATION: 03/29/2018 HISTORY OF PRESENT ILLNESS: This patient is a 67-year-old male with a history of TIA about 2 years a go that resulted in carotid endarterectomy by Dr. Barker. He also has diabetes and hypertension. He was admitted on 03/26 with complaints of aphasia and visual disturbances, such as floaters. Because of his previous symptoms, he came to the emergency department with those symptoms and was admitted. He was seen at the time by Neurology as well and had a carotid ultrasound showing some stenosis in th e left side. Subsequently, he underwent a carotid endarterectomy without complication. He has been monitored in the intensive care unit. Today, he reports ongoing visual disturbances, sometimes float ers and sometimes what he describes as lightening strikes. He had multiple questions related to thes e exact symptoms. In any case, he otherwise feels well. He has no headache. There have been no arr hythmias and no obvious bleeding. REVIEW OF SYSTEMS: Otherwise negative. PAST MEDICAL HISTORY: Includes diabetes, hypertension, TIA, hyperlipidemia, vitamin B12 deficiency, hypothyroidism and, I believe, anxiety. PAST SURGICAL HISTORY: Includes the right-sided CEA. SOCIAL HISTORY: He is a nonsmoker. No alcohol. FAMILY HISTORY: Includes cancer, coronary artery disease. CURRENT MEDICATIONS: Include Tylenol, vitamin C, aspirin, Lipitor, Dulcolax, Valium p.r.n., glipizid e, Dilaudid, Synthroid, Zestril, milk of magnesia, melatonin, Glucophage, Toprol, Zofran p.r.n., Perc ocet p.r.n., phenylephrine, which is not currently being used. PHYSICAL EXAM: VITAL SIGNS: Today, his blood pressure was 137/58, heart rate 67, respirations 15, o xygen saturation 97% on room air. GENERAL: He is a very pleasant, talkative man in no apparent dist ress. Able to speak in full sentences without using accessory muscles for breathing. HEENT: Pupils equally round and reactive to light. Nonicteric and noninjected. Mucous membranes are moist withou t erythema or exudate. NECK: Supple without adenopathy or jugular vein distention. The incision on the left side of his neck was clean and dry without evidence of hematoma. LUNGS: Breath sounds were clear to auscultation bilaterally without wheezes, rubs or rales. HEART: Regular rate and rhythm w ithout murmurs, rubs, gallops. ABDOMEN: Soft, nontender, nondistended without hepatosplenomegaly. EXTREMITIES: No clubbing, cyanosis or edema. NEUROLOGIC: Nonfocal, including cranial nerves, deep tendon reflexes. SKIN: Warm and dry without evidence of rash. OBJECTIVE DATA: Includes a white count of 11.7, hematocrit 32, platelets of 164. Basic metabolic pa ananda was normal. Glucose was 123 and 95. ASSESSMENT AND PLAN: 1. Left-sided symptomatic carotid artery stenosis, now status post carotid endarterectomy, appears t o be quite stable at this time. He was seen by Dr. Machado and given the okay for a discharge home. H e does appear to be stable from that perspective. 2. Hypertension. This seems to be reasonably well controlled at this time. 3. Diabetes. This is also well controlled. He is certainly stable at least for the floor, if not f or discharge home. /[id number]/MODL
--- NOTE | 2018-03-29 16:21 | HOSPPROG ---
Hospitalist Progress Note Assessment/Plan: * Symptomatic left carotid stenosis s/p CEA -doing well post surgery * TIA -neuro symptoms stable -outpatient cardiology consultation for event monitor - rule out afib -continue ASA * Hyperlipidemia -increased Lipitor for better LDL control * DM -metformin, glipizide Subjective: Doesn't feel ready for home Objective: Vital Signs Temp Pulse Resp BP Pulse Ox 37.0 C 62 13 148/65 H 96 03/28/18 19:00 03/29/18 13:00 03/29/18 13:00 03/29/18 13:00 03/29/18 13:58 Laboratory Results 03/29/18 05:15 03/29/18 05:15 03/28/18 03/29/18 03/30/18 05:59 05:59 05:59 Intake Total 850 2685 Output Total 2250 Balance 850 435 PT 12.7 SEC (12.0-15.0) 03/26/18 20:45 INR 0.93 (0.83-1.16) 03/26/18 20:45 - Physical Exam Constitutional: no apparent distress, appears nourished, not in pain Cardiovascular: regular rate and rhythym, no murmur, rub, or gallop Respiratory: no respiratory distress, no rales or rhonchi, clear to auscultation Gastrointestinal: normoactive bowel sounds, soft, non-tender abdomen, no palpable masses Skin: no rashes or abrasions, no fluctuance, no induration Neurologic: AAOx3, sensation intact bilaterally Psychiatric: interacting appropriately, not anxious, not encephalopathic, thought process linear ICD10 Worksheet Patient Problems: Problems Problem Status Onset Expressive aphasia Acute TIA (transient ischemic attack) Acute
[2018-03-29] MEDS: MELATONIN 3 MG TAB PO PRN (20:29)
[2018-03-29] MEDS: SENNOSIDES/DOCUSATE SODIUM TAB PO SCH (20:29)
[2018-03-29] MEDS: ZOLPIDEM TARTRATE 5 MG TAB PO PRN (20:29)
[2018-03-29] MEDS: ASPIRIN 81 MG CHEWABLE TAB PO SCH (20:29)
[2018-03-29] MEDS: glipiZIDE 5 MG TAB PO SCH (20:30)
[2018-03-30] MEDS: LEVOTHYROXINE 88 MCG TAB PO SCH (05:25)
--- NOTE | 2018-03-30 09:14 | ASMTCMCOM ---
CM Note CM Note Notes: Pt is being discharged today. CM spoke to pts nurse Jesus. Pt will follow up w/ optometry. PT has cleared pt without any needs. CM available for changes. Plan: Independent Date Signed: 03/30/2018 09:14 AM Electronically Signed By:CAIN Alcala
--- NOTE | 2018-03-30 09:15 | ASMTLACE ---
LACE Length of stay for Answers: 3 days current admission Acuity / Level of Answers: Yes Care: Did the patient have an inpatient admission? Comorbidities - select Answers: Cerebrovascular disease all that apply (CVA, TIA, aneurysms, vasc ular dementia) Diabetes (uncontrolled or controlled) Other Notes: Carotid disease; HTN # of Emergency department Answers: 1-2 visits in the last 6 months Score: 10 Date Signed: 03/30/2018 09:14 AM Electronically Signed By:CAIN Alcala
[2018-03-30] MEDS: ASCORBIC ACID 500 MG TAB PO SCH (09:16)
[2018-03-30] MEDS: ATORVASTATIN CALCIUM 10 MG TAB PO SCH (09:16)
[2018-03-30] MEDS: metFORMIN HCL 500 MG TAB PO SCH (09:16)
[2018-03-30] MEDS: METOPROLOL SUCCINATE XR 25 MG TAB PO SCH (09:16)
[2018-03-30] MEDS: CYANO/VITAMIN B12 1000 MCG TAB PO SCH (09:17)
[2018-03-30] MEDS: LISINOPRIL 10 MG TAB PO SCH (09:17)
[2018-03-30 09:18] VITALS: BP 163/87
[2018-03-30] MEDS: SENNOSIDES/DOCUSATE SODIUM TAB PO SCH (10:47)
--- NOTE | 2018-03-30 19:12 | GDS ---
DISCHARGE DIAGNOSES: 1. Transient ischemic attack, likely secondary to left internal carotid artery stenosis. 2. Status post carotid endarterectomy. 3. Diabetes. 4. Hyperlipidemia. CONSULTANTS: 1. Dr. Everton Pepe, Neurology. 2. Dr. Jayden Barker, Vascular Surgery. PROCEDURES: Left internal carotid endarterectomy, March 28, 2018. HISTORY: For details, please see the history and physical dated March 27, 2018. In brief, the antwan macias is a 67-year-old male with a history of diabetes, hypertension, and prior TIA with a history of a right carotid endarterectomy, who presented to the emergency department with aphasia. His symptoms have resolved, and he was admitted for TIA management. HOSPITAL COURSE: Patient was admitted to the Medical/Surgical unit. He had no evidence of large ves hossein occlusion on his CT angiography of his head or neck. MRI of the brain was performed, which was n egative for acute infarct, with moderate narrowing of the bilateral internal carotid arteries. Some concern was given to recurrent TIA related to his carotid artery stenosis. Vascular surgery consult was obtained, and he did undergo a carotid endarterectomy. His postop course was unremarkable. He r emained normotensive throughout his hospitalization. His LDL was 77, and his statin dose was increas ed. I discussed the case with Neurology prior to discharge, and he will be discharged on dual antipl atelet therapy, to continue his home aspirin dose, and Plavix will be added. In addition, I recommend he follow up with [facility] to arrange for outpatient cardiac event monitor to search for atrial fibrillation. DISPOSITION: Patient is discharged home in stable condition. FOLLOWUP: 1. Dr. Jayden Barker, Vascular Surgery, in [address] Rodri Perez, [facility]. 3. Dr. Maurizio Dias, primary care. 4. Dr. Sharath Luong, Ophthalmology. DISCHARGE MEDICATIONS: Please see [facility] for completed outpatient medication list. New medications on discharge include atorvastatin 20 mg p.o. daily, Plavix 75 mg p.o. daily. He will continue all other outpatient medications as previously prescribed. /[id number]/MODL
== END 2018-03-30 10:09 | disposition home or self-care (01) | DRG 39 ==
LOC: F3N 22:58 → OBSVTOIN 03-27 16:44 → F2N 03-28 10:18 → F3E 03-30 06:20
PROVIDERS: ADMIT Student in an Organized Health Care Education/Training Program; ATTEND Surgery
PROC: 03CL0ZZ Extirpation of Matter from Left Internal Carotid Artery, Open Approach (ICD-10-PCS; principal; 2018-03-28 08:00)
DX: I65.22 Occlusion and stenosis of left carotid artery (principal); I10 Essential (primary) hypertension; E11.9 Type 2 diabetes mellitus without complications; E78.5 Hyperlipidemia, unspecified; M10.9 Gout, unspecified; E03.9 Hypothyroidism, unspecified; E53.8 Deficiency of other specified B group vitamins; Z86.73 Personal history of transient ischemic attack (TIA), and cerebral infarction without residual deficits
CPT/HCPCS: 82435-PO; 82565-PO; 82947-PO; 84132-PO; 84295-PO; 84484-PO; 84520-PO; 85014-PO; 92523-GN; 97116-GP; 97161-GP; 97165-GO; C1768; G0378; G8978-GP-CH; G8979-GP-CH; G8980-GP-CH; G8987-GO-CI; G8988-GO-CI; G8989-GO-CI; G9162-GN-CH; G9163-GN-CH; G9164-GN-CH; J0690; J1100; J1644; J2250; J2405; J2704; J2720; J3010; P9041; Q9967

== ENCOUNTER → 2018-09-29 | Outpatient (CLI) | payer OTHER | LOC: BHFA 13:15 | PROVIDERS: ATTEND Internal Medicine Interventional Cardiology | DX: I25.10 Atherosclerotic heart disease of native coronary artery without angina pectoris (principal) ==